=== PATIENT | male | born 1980 | race Caucasian/White ===

== ENCOUNTER 2017-03-10 16:22 | Emergency (ER) | payer SELFPAY ==
[~2017-03-10] VITALS: Ht 193 cm; Wt 99.8 kg
[~2017-03-10 16:22] MED LIST: AGM875T PO; ALBU8.5H2 IH; AMOX500C2 PO; AMOX500T2 PO; AZIT-21 PO; CEPH500C PO; CYCL10TA45 PO; CYCL10TA9 PO; HYDR-1231 PO; HYDR-3583 PO; HYDR1TAB3 PO; HYDR1TAB71 PO; IBP800T PO; NAPR-243 PO; NAPR500T PO; NAPR500T3 PO; NFIPRATRNS NS; ORPH100T PO; POLY119P PO; PRD20T PO; PRED5TAB PO; PROP1TAB77 PO; TRAM50TA2 PO; TRM50T PO; flexeril PO
--- NOTE | 2017-03-10 17:14 | ED EENT ---
History of Present Illness General Chief Complaint: Trauma-Non Activation Stated Complaint: FACE HIT BY SOFTBALL Nursing Triage Note: AMB TO ROOM WAS HIT IN NOSE WITH SOFTBALL SUPERFICAL LAC OVER BRIDGE OF NOSE. Source: patient Exam Limitations: no limitations History of Present Illness Time seen by provider: 17:12 Initial Comments To ER with reports of being struck in the bridge of his nose by one of his daughter's friends baseball pitches. He was wearing sunglasses at the time which lacerated the bridge of his nose. No loss of consciousness. No vision changes. Severity: moderate Location: nose Associated Symptoms: No cough, No fever Allergies and Home Medications Allergies Coded Allergies: NKANo Known Allergies (Unverified Allergy, Mild, 12/09/15) No Known Drug Allergies (Unverified , 12/22/09) Home Medications Cyclobenzaprine HCl 10 Mg Tablet, 10 MG PO Q8H, #15 Prescribed by: KATIE MCCAIN on 08/21/163 Naproxen 500 Mg Tablet, 500 MG PO BID, #20 Prescribed by: KATIE MCCAIN on 08/21/163 Review of Systems Constitutional: see HPI Eyes: No Symptoms Reported Ears: No Symptoms Reported Nose: see HPI Mouth: no symptoms reported Throat: no symptoms reported Respiratory: no symptoms reported Cardiovascular: no symptoms reported Musculoskeletal: no symptoms reported Past Arlvjch-Hzklil-Cnrdgz Hx Patient Social History Alcohol Use: Occasionally Uses Recreational Drug Use: No Smoking Status: Current Everyday Smoker Type Used: Cigarettes Recent Foreign Travel: No Contact w/Someone Who Travel: No Recent Infectious Disease Expo: No Recent Hopitalizations: No Immunizations Up To Date Tetanus Booster (TDap): Unknown Date of Influenza Vaccine: Sep 18, 2015 Seasonal Allergies Seasonal Allergies: No Surgeries HX Surgeries: Yes (RIGHT ARM REPAIR--CUT ARM ON CHICKEN WIRE/GLASS) Surgeries: Orthopedic Respiratory Hx Respiratory Disorders: Yes Respiratory Disorders: Asthma Cardiovascular Hx Cardiac Disorders: No Neurological Hx Neurological Disorders: Yes (h/o seizures-- stress induced petite mal seizures)) Neurological Disorders: Seizure Disorder Reproductive System Hx Reproductive Disorders: No Sexually Transmitted Disease: No HIV/AIDS: No Genitourinary Hx Genitourinary Disorders: No Gastrointestinal Hx Gastrointestinal Disorders: No Musculoskeletal Hx Musculoskeletal Disorders: Yes Musculoskeletal Disorders: Degenerate Disk Disease, Chronic Back Pain Endocrine Hx Endocrine Disorders: No HEENT HX ENT Disorders: No Cancer Hx Cancer: No Psychosocial Hx Psychiatric Problems: No Integumentary HX Skin/Integumentary Disorder: No Blood Transfusions Hx Blood Disorders: No Adverse Reaction to a Blood Tr: No Family Medical History Significant Family History: No Pertinent Family Hx Physical Exam Vital Signs Vital Sign - Last 12Hours 03/10/17 16:54 Temp 98.0 Pulse 96 Resp 18 B/P (MAP) 140/92 Pulse Ox 96 O2 Delivery Room Air General Appearance: WD/WN, no apparent distress Eyes: bilateral eye EOMI, bilateral eye PERRL, bilateral eye normal inspection Ears: bilateral ear TM normal, bilateral ear auricle normal, bilateral ear canal normal Nose: other (superficial laceration to the bridge of his nose without obvious deformity of the nose with no active bleeding. No septal hematoma.) Respiratory: no respiratory distress, no accessory muscle use Gastrointestinal: non tender, soft Neurologic/Psychiatric: alert, normal mood/affect, oriented x 3 Skin: normal color, warm/dry Progress/Results/Core Measures Results/Orders My Orders Orders - CELESTE BOWLES APRN Nasal Bones 3 Views (03/10/17 17:11) Vital Signs/I&O Vital Sign - Last 12Hours 03/10/17 16:54 Temp 98.0 Pulse 96 Resp 18 B/P (MAP) 140/92 Pulse Ox 96 O2 Delivery Room Air Blood Pressure Mean: 108 Diagnostic Imaging Diagonstic Imaging: Xray Comments NAME: ESTRADA DUARTE [facility] REC#: [id number] PT STATUS: REG ER : 1980 PHYSICIAN: CELESTE BOWLES APRN ADMIT DATE: 03/10/17/ER Draft Date of Exam:03/10/17 NASAL BONES 3 VIEWS EXAMINATION: Nasal bone radiographs, 3 views. COMPARISON: None. HISTORY: 36-year-old male, injury to nose. FINDINGS: There are comminuted nasal bone fractures without marked displacement identified radiographically. There is adjacent soft tissue swelling. There is no identified radiopaque foreign body. IMPRESSION: 1. Comminuted nasal bone fractures without gross fracture displacement noted radiographically. 2. No radiopaque foreign body. Dictated on workstation # [id number] Dict: 03/10/171802 Trans: 03/10/171806 [facility] [id number] Interpreted by: SHORTY ESTRADA MD Electronically signed by: Departure Impression Impression: Primary Impression: fracture of nasal bones Disposition: 01 HOME, SELF-CARE Condition: Stable Departure-Patient Inst. Decision time for Depature: 17:14 Referrals: ALEJO CARTER MD [facility][1] (PCP/Family) Primary Care Physician Patient Instructions: Contusion (DC), Nose Fracture (DC) Add. Discharge Instructions: 1. Antibiotics as directed 2. Pain medication as needed 3. Cold compresses to the face over the bridge of the nose 4. Follow-up with Dr. Carter in 1-2 weeks All discharge instructions reviewed with patient and/or family. Voiced understanding. Scripts Amoxicillin (Amoxicillin) 500 Mg Capsule 500 MG PO TID, #21 CAP Prov: CELESTE BOWLES APRN 03/10/17 Hydrocodone/Acetaminophen (Natchez 5-325 Tablet) 1 Each Tablet 1 EACH PO Q4H Y for PAIN-SEVERE, #10 TAB Prov: CELESTE BOWLES APRN 03/10/17 CELESTE BOWLES APRN Mar 10, 2017 17:14
--- NOTE | 2017-03-10 18:07 | Diagnostic Imaging Report ---
EXAMINATION: Nasal bone radiographs, 3 views. COMPARISON: None. HISTORY: 36-year-old male, injury to nose. FINDINGS: There are comminuted nasal bone fractures without marked displacement identified radiographically. There is adjacent soft tissue swelling. There is no identified radiopaque foreign body. IMPRESSION: 1. Comminuted nasal bone fractures without gross fracture displacement noted radiographically. 2. No radiopaque foreign body. Dictated by: Dictated on workstation # [id number]
[2017-03-10] MEDS ORDERED: HYDR-757 PO (18:11)
[2017-03-10] MEDS ORDERED: AMOX500C2 PO (18:11)
[2017-03-10 18:18] VITALS: BP 140/92
== END 2017-03-10 18:18 | disposition home or self-care (01) ==
LOC: EDUNIT# 16:22 → ER 16:24
DX: S01.21XA Laceration without foreign body of nose, initial encounter (principal); S02.2XXA Fracture of nasal bones, initial encounter for closed fracture; F17.210 Nicotine dependence, cigarettes, uncomplicated; W21.07XA Struck by softball, initial encounter; Y92.320 Baseball field as the place of occurrence of the external cause; Y93.64 Activity, baseball; Y99.8 Other external cause status
CPT/HCPCS: 70160; 99282

== ENCOUNTER → 2017-06-18 | Outpatient (CLI) | payer OTHER ==
[~2017-06-18] MED LIST changes: +HYDR-757 PO
--- NOTE | 2017-06-18 11:22 | Diagnostic Imaging Report ---
PROCEDURE: MRI lumbar spine. TECHNIQUE: Multiplanar, multisequence MRI of the lumbar spine was performed without contrast. INDICATION: Lumbar pain and radiculopathy. COMPARISON: CT lumbar spine without contrast 09/24/2014. MRI lumbar spine without contrast 06/18/2017. FINDINGS: There are 5 lumbar type vertebral bodies. There is grade 1 anterolisthesis of L5 on S1. Bilateral pars defects of L5. Alignment is otherwise normal. Vertebral body heights are maintained. Normal bone marrow signal. No abnormal signal of the conus which terminates at L1. Normal morphology of the cauda equina. The visualized paravertebral soft tissues are unremarkable. There is mild disc desiccation at L3-L4 and L5-S1. There is no spinal canal or lateral recess narrowing in the lumbar spine. At L5-S1, the anterolisthesis and unroofing of the intervertebral disc results in moderate right neural foraminal narrowing. There is no other substantial neural foraminal narrowing in the lumbar spine. IMPRESSION: No significant change. Grade 1 anterolisthesis of L5 on S1 due to bilateral pars defects of L5. This contributes to moderate right neural foraminal narrowing at L5-S1. There is no other substantial spinal canal, lateral recess or neural foraminal narrowing throughout the lumbar spine. Dictated by: Dictated on workstation # [id number]
== END ==
LOC: RAD 09:37
DX: M43.16 Spondylolisthesis, lumbar region (principal); M48.06 Spinal stenosis, lumbar region
CPT/HCPCS: 72148

== ENCOUNTER 2017-08-19 17:37 | Emergency (ER) | payer SELFPAY ==
[~2017-08-19] VITALS: Ht 193 cm; Wt 100.0 kg
--- OUTSIDE RECORDS SUMMARY | 2017-08-19 18:18 | XMS REPORT ---
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 01726167 ALLERGIES Unknown Allergies SOCIAL HISTORY No smoking Hx information available PLAN OF CARE Activity Details Follow Up prn Reason:Endo #19 VITAL SIGNS Blood pressure systolic 134 mmHg 2016-09-27 Blood pressure diastolic 93 mmHg 2016-09-27 MEDICATIONS Medication Instructions Dosage Frequency Start Date End Date Duration Status Rogers 5-325 MG Orally every 6 hrs 1 tablet as needed 6h 4 days Active Amoxicillin 500 MG Orally Three times a day 1 capsule 8h 7 days Active RESULTS No Results PROCEDURES Procedure Date Ordered Related Diagnosis Body Site Dental no charge Sep 27, 2016 IMMUNIZATIONS No Known Immunizations
--- OUTSIDE RECORDS SUMMARY | 2017-08-19 18:18 | XMS REPORT ---
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 Unknown Non Drug Allergy Oct, Unknown SOCIAL HISTORY No smoking Hx information available PLAN OF CARE Activity Details Follow Up prn Reason: VITAL SIGNS Height 74 in 2016-10-31 Weight 223 lbs 2016-10-31 Temperature 97.6 degrees Fahrenheit 2016-10-31 Heart Rate 80 bpm 2016-10-31 Respiratory Rate 20 2016-10-31 BMI 28.63 kg/m2 2016-10-31 Blood pressure systolic 122 mmHg 2016-10-31 Blood pressure diastolic 80 mmHg 2016-10-31 MEDICATIONS Unknown Medications RESULTS Name Result Date Reference Range Xray : Hand, Right 2 views (IN HOUSE) 2016-10-31 Xray : Wrist, Right 3 views (IN HOUSE) 2016-10-31 PROCEDURES Procedure Date Ordered Related Diagnosis Body Site X-RAY EXAM OF WRIST Oct 31, 2016 X-RAY EXAM OF HAND Oct 31, 2016 Office Visit, Est Pt., Level 3 Oct 31, 2016 IMMUNIZATIONS No Known Immunizations
--- OUTSIDE RECORDS SUMMARY | 2017-08-19 18:19 | XMS REPORT | Continuity of Care Document ---
Author Author [facility] Address Unknown Phone Unavailable Allergies Active Description Code Type Severity Reaction Onset Reported/Identified Relationship to Patient Clinical Status Yes No Known Drug Allergies [id number] Drug Allergy Mild N/A 12/22/2009 Yes NKANo Known Allergies NKA Miscellaneous Allergy Mild N/A 12/09/2015 Medications Problems Date Dx Coded Attending Type Code Diagnosis Diagnosed By 07/04/2010 Ot 305.90 07/04/2010 Ot 922.2 07/04/2010 Ot 924.01 07/04/2010 Ot 959.6 07/04/2010 Ot E000.8 07/04/2010 Ot E826.1 07/04/2010 Ot E849.5 07/09/2010 Ot 922.2 07/09/2010 Ot 959.12 07/09/2010 Ot E000.8 07/09/2010 Ot E849.5 07/09/2010 Ot E927.8 12/21/2010 Ot 382.4 SUPPUR OTITIS MEDIA NOS 12/21/2010 Ot 382.9 OTITIS MEDIA NOS 12/21/2010 Ot 473.9 CHRONIC SINUSITIS NOS 03/17/2012 Ot 564.00 UNSPEC CONSTIPATION 03/17/2012 Ot 789.00 ABDOMINAL PAIN, UNSPECIFIED SITE 05/27/2012 Ot 724.2 LUMBAGO 05/31/2012 Ot 780.39 OTHER CONVULSIONS 07/26/2012 Ot 462 ACUTE PHARYNGITIS 08/06/2012 078.11 WARTS CONDYLOMA GENITAL 08/06/2012 XOCHITL ADAMSON APRN 078.11 WARTS CONDYLOMA GENITAL 08/06/2012 BEBO BONILLA APRN 078.11 WARTS CONDYLOMA GENITAL 08/06/2012 MAI OSBORNE DO 078.11 WARTS CONDYLOMA GENITAL 08/06/2012 BEBO BONILLA APRN 078.11 WARTS CONDYLOMA GENITAL 08/06/2012 MADL SYSTEMS TESTING LABORATORY TECHNICIAN, BEBO L 078.11 WARTS CONDYLOMA GENITAL 06/02/2013 SONIA DILL MD Ot 521.00 UNSPEC DENTAL CARIES 06/02/2013 SONIA DILL MD Ot 723.1 CERVICALGIA 06/02/2013 SONIA DILL MD Ot 782.1 NONSPECIF SKIN ERUPT NEC 07/28/2013 521.00 UNSPECIFIED DENTAL CARIES 07/28/2013 JUAN DIEGO TIRADON, XOCHITL R 521.00 UNSPECIFIED DENTAL CARIES 07/28/2013 MADL SYSTEMS TESTING LABORATORY TECHNICIAN, BEBO L 521.00 UNSPECIFIED DENTAL CARIES 07/28/2013 MAI OSBORNE DO K 521.00 UNSPECIFIED DENTAL CARIES 07/28/2013 MADL SYSTEMS TESTING LABORATORY TECHNICIAN, BEBO L 521.00 UNSPECIFIED DENTAL CARIES 07/28/2013 MADL SYSTEMS TESTING LABORATORY TECHNICIAN, BEBO L 521.00 UNSPECIFIED DENTAL CARIES 09/11/2013 CELESTE BOWLES APRN Ot 521.00 UNSPEC DENTAL CARIES 09/11/2013 CELESTE BOWLES APRN Ot 522.5 PERIAPICAL ABSCESS 09/11/2013 CELESTE BOWLES SYSTEMS TESTING LABORATORY TECHNICIAN Ot 525.9 DENTAL DISORDER NOS 10/19/2013 SONIA DILL MD Ot 719.41 JOINT PAIN-SHLDER 10/19/2013 SONIA DILL MD Ot 726.10 BURSAE TENDONS DIS SHLDER NOS 01/02/2014 INGRID MANUEL Ot 564.00 UNSPEC CONSTIPATION 01/02/2014 INGRID MANUEL Ot 786.50 CHEST PAIN NOS 01/02/2014 INGRID MANUEL Ot 789.05 ABDOMINAL PAIN, PERIUMBILIC 05/11/2014 JUAN DIEGO FLANAGAN, XOCHITL R 724.2 LUMBAGO 05/11/2014 MADL SYSTEMS TESTING LABORATORY TECHNICIAN, BEBO L 724.2 LUMBAGO 05/11/2014 OSBORNE DOPHYLICIAA K 724.2 LUMBAGO 05/11/2014 MADL SYSTEMS TESTING LABORATORY TECHNICIAN, BEBO L 724.2 LUMBAGO 05/11/2014 MADL SYSTEMS TESTING LABORATORY TECHNICIAN, BEBO L 724.2 LUMBAGO 05/31/2014 MADL SYSTEMS TESTING LABORATORY TECHNICIAN, BEBO L 300.00 ANXIETY STATE UNSPECIFIED 05/31/2014 MADL SYSTEMS TESTING LABORATORY TECHNICIAN, BEBO L 729.1 MYALGIA AND MYOSITIS UNSPECIFIED 05/31/2014 MADL SYSTEMS TESTING LABORATORY TECHNICIAN, BEBO L 780.79 OTHER MALAISE AND FATIGUE 05/31/2014 OSBORNE DO, MAI K 300.00 ANXIETY STATE UNSPECIFIED 05/31/2014 OSBORNE DO, MAI K 729.1 MYALGIA AND MYOSITIS UNSPECIFIED 05/31/2014 OSBORNE DO MAI K 780.79 OTHER MALAISE AND FATIGUE 05/31/2014 MADL SYSTEMS TESTING LABORATORY TECHNICIAN, BEBO L 300.00 ANXIETY STATE UNSPECIFIED 05/31/2014 MADL SYSTEMS TESTING LABORATORY TECHNICIAN, BEBO L 729.1 MYALGIA AND MYOSITIS UNSPECIFIED 05/31/2014 MADL SYSTEMS TESTING LABORATORY TECHNICIAN, EBBO L 780.79 OTHER MALAISE AND FATIGUE 05/31/2014 MADL SYSTEMS TESTING LABORATORY TECHNICIAN, BEBO L 300.00 ANXIETY STATE UNSPECIFIED 05/31/2014 MADL SYSTEMS TESTING LABORATORY TECHNICIAN, BEBO L 729.1 MYALGIA AND MYOSITIS UNSPECIFIED 05/31/2014 MADL SYSTEMS TESTING LABORATORY TECHNICIAN, BEBO L 780.79 OTHER MALAISE AND FATIGUE 06/07/2014 OSBORNE DO MAI K 268.9 UNSPECIFIED VITAMIN D DEFICIENCY 06/07/2014 OSBORNE DO, MAI K 461.9 SINUSITIS ACUTE 06/07/2014 [place] FAIRBANKS, MAI K 790.21 ABNORMAL GLUOSE, FASTING 06/07/2014 MADL SYSTEMS TESTING LABORATORY TECHNICIAN, BEBO L 268.9 UNSPECIFIED VITAMIN D DEFICIENCY 06/07/2014 MADL SYSTEMS TESTING LABORATORY TECHNICIAN, BEBO L 461.9 SINUSITIS ACUTE 06/07/2014 MADL SYSTEMS TESTING LABORATORY TECHNICIAN, BEBO L 790.21 ABNORMAL GLUOSE, FASTING 06/07/2014 MADL SYSTEMS TESTING LABORATORY TECHNICIAN, BEBO L 268.9 UNSPECIFIED VITAMIN D DEFICIENCY 06/07/2014 MADL SYSTEMS TESTING LABORATORY TECHNICIAN, BEBO L 461.9 SINUSITIS ACUTE 06/07/2014 MADL SYSTEMS TESTING LABORATORY TECHNICIAN, BEBO L 790.21 ABNORMAL GLUOSE, FASTING 07/15/2014 MADL SYSTEMS TESTING LABORATORY TECHNICIAN, BEBO L 724.3 SCIATICA 07/15/2014 MADL SYSTEMS TESTING LABORATORY TECHNICIAN, BEBO L 724.3 SCIATICA 09/18/2014 CELESTE BOWLES SYSTEMS TESTING LABORATORY TECHNICIAN Ot 924.20 CONTUSION OF FOOT 09/18/2014 CELESTE BOWLES SYSTEMS TESTING LABORATORY TECHNICIAN Ot 959.7 LOWER LEG INJURY NOS 09/18/2014 CELESTE BOWLES SYSTEMS TESTING LABORATORY TECHNICIAN Ot E000.8 OTHER EXTERNAL CAUSE STATUS 09/18/2014 CELESTE BOWLES SYSTEMS TESTING LABORATORY TECHNICIAN Ot E917.0 STRUCK IN SPORTS 09/24/2014 INGRID MANUEL Ot 722.10 LUMBAR DISC DISPLACEMENT 09/24/2014 INGRID MANUEL Ot 724.2 LUMBAGO 09/24/2014 INGRID MANUEL Ot 756.11 LUMBOSACR SPONDYLOLYSIS 09/24/2014 INGRID MANUEL Ot 847.9 SPRAIN OF BACK NOS 09/24/2014 INGRID MANUEL Ot E928.9 ACCIDENT NOS 10/06/2014 BEBO BONILLA APRN L 738.4 ACQUIRED SPONDYLOLISTHESIS 01/13/2015 Ot 461.9 ACUTE SINUSITIS NOS 01/13/2015 Ot 462 ACUTE PHARYNGITIS 01/13/2015 Ot 466.0 ACUTE BRONCHITIS 01/14/2015 INGRID MANUEL Ot 722.10 01/14/2015 INGRID MANUEL Ot 738.4 02/04/2015 Ot 780.39 OTHER CONVULSIONS 02/20/2015 CELESTE BOWLES SYSTEMS TESTING LABORATORY TECHNICIAN Ot 465.9 ACUTE URI NOS 02/20/2015 CELESTE BOWLES SYSTEMS TESTING LABORATORY TECHNICIAN Ot 786.2 COUGH 05/15/2015 RAÚL ROGERS MD Ot 789.09 ABDOMINAL PAIN, OTHER SPECIFIED SITE 05/15/2015 RAÚL ROGERS MD Ot 848.8 SPRAIN NEC 05/15/2015 RAÚL ROGERS MD Ot E000.8 OTHER EXTERNAL CAUSE STATUS 05/15/2015 RAÚL ROGERS MD Ot E927.0 OVEREXERTION FROM SUDDEN STRENUOUS MOVEM 05/19/2015 INGRID MANUEL Ot 722.10 05/19/2015 INGRID MANUEL Ot 738.4 10/16/2015 INGRID MANUEL Ot 722.10 10/16/2015 INGRID MANUEL Ot 738.4 10/16/2015 INGRID MANUEL Ot F17.210 NICOTINE DEPENDENCE, CIGARETTES, UNCOMPL 10/16/2015 INGRID MANUEL Ot G89.29 OTHER CHRONIC PAIN 10/16/2015 INGRID MANUEL Ot M54.16 RADICULOPATHY, LUMBAR REGION 10/16/2015 INGRID MANUEL Ot 722.10 10/16/2015 INGRID MANUEL Ot 738.4 12/09/2015 INGRID MANUEL Ot F17.210 NICOTINE DEPENDENCE, CIGARETTES, UNCOMPL 12/09/2015 INGRID MANUEL Ot S20.212A CONTUSION OF LEFT FRONT WALL OF THORAX, 12/09/2015 INGRID MANUEL Ot S46.912A STRAIN UNSP MUSC/FASC/TEND AT SHLDR/ UP A 12/09/2015 INGRID MANUEL Ot W22.8XXA STRIKING AGAINST OR STRUCK BY OTHER OBJE 12/09/2015 INGRID MANUEL Ot Y99.8 OTHER EXTERNAL CAUSE STATUS 04/16/2016 INGRID MANUEL Ot 722.10 LUMBAR DISC DISPLACEMENT 04/16/2016 INGRID MANUEL Ot 738.4 ACQ SPONDYLOLISTHESIS 04/16/2016 INGRID MANUEL Ot 722.10 LUMBAR DISC DISPLACEMENT 04/16/2016 INGRID MANUEL Ot 738.4 ACQ SPONDYLOLISTHESIS 04/16/2016 INGRID MANUEL Ot 722.10 LUMBAR DISC DISPLACEMENT 04/16/2016 INGRID MANUEL Ot 738.4 ACQ SPONDYLOLISTHESIS 06/03/2016 CELESTE BOWLES SYSTEMS TESTING LABORATORY TECHNICIAN Ot F17.210 NICOTINE DEPENDENCE, CIGARETTES, UNCOMPL 06/03/2016 CELESTE BOWLES APRN Ot M43.6 TORTICOLLIS 06/03/2016 CELESTE BOWLES APRN Ot M54.9 DORSALGIA, UNSPECIFIED 06/05/2016 CELESTE BOWLES SYSTEMS TESTING LABORATORY TECHNICIAN Ot F17.210 NICOTINE DEPENDENCE, CIGARETTES, UNCOMPL 06/05/2016 CELESTE BOWLES APRN Ot M43.6 TORTICOLLIS 06/05/2016 CELESTE BOWLES APRN Ot M54.9 DORSALGIA, UNSPECIFIED 06/08/2016 CELESTE BOWLES SYSTEMS TESTING LABORATORY TECHNICIAN Ot F17.210 NICOTINE DEPENDENCE, CIGARETTES, UNCOMPL 06/08/2016 CELESTE BOWLES SYSTEMS TESTING LABORATORY TECHNICIAN Ot M43.6 TORTICOLLIS 06/08/2016 CELESTE BOWLES SYSTEMS TESTING LABORATORY TECHNICIAN Ot M54.9 DORSALGIA, UNSPECIFIED 07/20/2016 INGRID MANUEL Ot 722.10 LUMBAR DISC DISPLACEMENT 07/20/2016 INGRID MANUEL Ot 738.4 ACQ SPONDYLOLISTHESIS 07/24/2016 ELIANE GRIFFITH DO Ot F17.210 NICOTINE DEPENDENCE, CIGARETTES, UNCOMPL 07/24/2016 ELIANE GRIFFITH DO Ot M54.12 RADICULOPATHY, CERVICAL REGION 07/24/2016 ELIANE GRIFFITH DO Ot R20.0 ANESTHESIA OF SKIN 08/02/2016 MADL, BEBO L EQUIPMENT HIRE MANAGER Ot R20.2 PARESTHESIA OF SKIN 08/02/2016 MADL, BEBO L EQUIPMENT HIRE MANAGER Ot R20.2 PARESTHESIA OF SKIN 08/21/2016 KALYN KATIE K Ot F17.210 NICOTINE DEPENDENCE, CIGARETTES, UNCOMPL 08/21/2016 KALYN , KATIE K Ot R07.81 PLEURODYNIA 08/21/2016 KALYN , KATIE K Ot S20.212A CONTUSION OF LEFT FRONT WALL OF THORAX, 08/21/2016 KALYN KATIE FAIRBANKS K Ot W50.0XXA ACCIDENTAL HIT OR STRIKE BY ANOTHER PERS 08/21/2016 KALYN , KATIE K Ot Y93.89 ACTIVITY, OTHER SPECIFIED 08/21/2016 KALYN , KATIE K Ot Y99.8 OTHER EXTERNAL CAUSE STATUS 08/22/2016 KALYN MICHAEL FAIRBANKSA Fernanda Ot F17.210 NICOTINE DEPENDENCE, CIGARETTES, UNCOMPL 08/22/2016 KALYN , KATIE K Ot R07.81 PLEURODYNIA 08/22/2016 KALYN , KATIE K Ot S20.212A CONTUSION OF LEFT FRONT WALL OF THORAX, 08/22/2016 KALYN MICHAEL FAIRBANKSA Fernanda Ot W50.0XXA ACCIDENTAL HIT OR STRIKE BY ANOTHER PERS 08/22/2016 KALYN , KATIE K Ot Y93.89 ACTIVITY, OTHER SPECIFIED 08/22/2016 AKLYN , KATIE K Ot Y99.8 OTHER EXTERNAL CAUSE STATUS 03/10/2017 CELESTE BOWLES APRN Ot F17.210 NICOTINE DEPENDENCE, CIGARETTES, UNCOMPL 03/10/2017 CELESTE BOWLES APRN Ot S01.21XA LACERATION WITHOUT FOREIGN BODY OF NOSE , 03/10/2017 CELESTE BOWLES APRN Ot S02.2XXA FRACTURE OF NASAL BONES, INIT ENCNTR FOR 03/10/2017 CELESTE BOWLES APRN Ot W21.07XA STRUCK BY SOFTBALL, INITIAL ENCOUNTER 03/10/2017 CELESTE BOWLES APRN Ot Y92.[address] 03/10/2017 CELESTE BOWLES APRN Ot Y93.64 ACTIVITY, BASEBALL 03/10/2017 CELESTE BOWLES APRN Ot Y99.8 OTHER EXTERNAL CAUSE STATUS 03/12/2017 CELESTE BOWLES APRN Ot F17.210 NICOTINE DEPENDENCE, CIGARETTES, UNCOMPL 03/12/2017 CELESTE BOWLES APRN Ot S01.21XA LACERATION WITHOUT FOREIGN BODY OF NOSE , 03/12/2017 CELESTE BOWLES APRN Ot S02.2XXA FRACTURE OF NASAL BONES, INIT ENCNTR FOR 03/12/2017 CELESTE BOWLES APRN Ot W21.07XA STRUCK BY SOFTBALL, INITIAL ENCOUNTER 03/12/2017 CELESTE BOWLES APRN Ot Y92.[address] 03/12/2017 CELESTE BOWLES APRN Ot Y93.64 ACTIVITY, BASEBALL 03/12/2017 CELESTE BOWLES APRN Ot Y99.8 OTHER EXTERNAL CAUSE STATUS 04/20/2017 CELESTE BOWLES APRN Ot F17.210 NICOTINE DEPENDENCE, CIGARETTES, UNCOMPL 04/20/2017 CELESTE BOWLES APRN Ot S01.21XA LACERATION WITHOUT FOREIGN BODY OF NOSE , 04/20/2017 CELESTE BOWLES APRN Ot S02.2XXA FRACTURE OF NASAL BONES, INIT ENCNTR FOR 04/20/2017 CELESTE BOWLES APRN Ot W21.07XA STRUCK BY SOFTBALL, INITIAL ENCOUNTER 04/20/2017 CELESTE BOWLES APRN Ot Y92.[address] 04/20/2017 CELESTE BOWLES APRN Ot Y93.64 ACTIVITY, BASEBALL 04/20/2017 CELESTE BOWLES APRN Ot Y99.8 OTHER EXTERNAL CAUSE STATUS 06/19/2017 PRITCHARD, LYLE L SYSTEMS TESTING LABORATORY TECHNICIAN Ot M43.16 SPONDYLOLISTHESIS, LUMBAR REGION 06/19/2017 [place]CHAR[place] SYSTEMS TESTING LABORATORY TECHNICIAN Ot M48.06 SPINAL STENOSIS, LUMBAR REGION Procedures Code Description [place] [address] ROUTINE VENIPUNCTURE 05/31/2014 94506 CMP 05/31/2014 10474 LIPID PANEL 05/31 55127 VITAMIN D 25-HYDROXY (D2,D3, TOTAL) 05/31/2014 57883 TSH 05/31/2014 39460 CBC 05/31/2014 87407 ROUTINE VENIPUNCTURE 06/07/2014 36568 ROUTINE VENIPUNCTURE 06/07/2014 08995 GLUCOSE RICCI 2 HOUR 06/07/2014 Results Encounters ACCT No. Visit Date/Time Discharge Status Pt. Type Provider Facility Loc./Unit Complaint [id number] 10/06/2014 08:17:00 10/06/2014 23: 59:59 CLS Outpatient BEBO BONILLA APRN [id number] 07/15/2014 09:23:00 07/15/2014 23: 59:59 CLS Outpatient BEBO BONILLA APRN [id number] 06/07/2014 14:31:00 06/07/2014 23: 59:59 CLS Outpatient MAI OSBORNE DO [id number] 05/31/2014 09:52:00 05/31/2014 23: 59:59 CLS Outpatient BEBO BONILLA APRN [id number] 05/11/2014 17:53:00 05/11/2014 23: 59:59 CLS Outpatient XOCHITL ADAMSON APRN [id number] 07/28/2013 11:15:00 Document Registration [id number] 06/18/2017 09:37:00 2016 23:59:59 CLS Outpatient MACHO LYLE Lina SYSTEMS TESTING LABORATORY TECHNICIAN [facility] RAD SEVERE LUMBAR PAIN [id number] 03/10/2017 16:24:00 2016 18:18:00 DIS Emergency CELESTE BOWLES APRN [facility] ER FACE HIT BY SOFTBALL [id number] 08/21/2016 21:32:00 2015 22:40:00 DIS Emergency KATIE MCCAIN DO [facility] ER RIB PAIN/INJ [id number] 08/01/2016 09:12:00 2015 23:59:59 CLS Outpatient BEBO BONILLA EQUIPMENT HIRE MANAGER [facility] RAD PARESTHESIA OF RT ARM [id number] 07/20/2016 21:21:00 2015 22:04:00 DIS Outpatient NACHO FAIRBANKS ELIANE Tamiko [facility] ER LEFT HAND NUMB [id number] 06/03/2016 19:50:00 2015 22:02:00 DIS Emergency CELESTE BOWLES APRN [facility] ER LT SIDE UPPER BACK PAIN [id number] 12/09/2015 19:25:00 2015 22:36:00 DIS Emergency INGRID MANUEL [facility] ER L SIDE ARM PAIN [id number] 10/16/2015 13:52:00 2014 14:48:00 DIS Emergency INGRID MANUEL [facility] ER BACK PAIN [id number] 05/15/2015 10:19:00 2014 12:36:00 DIS Emergency RAÚL ROGERS MD [facility] ER GROIN PAIN [id number] 02/20/2015 20:37:00 2014 21:03:00 DIS Emergency CELESTE BOWLES APRN [facility] ER CHEST CONGESTION,SORE THROAT [id number] 09/29/2014 08:16:00 2013 23:59:59 CLS Outpatient INGRID MANUEL [facility] RAD HERNIATED DISC, [id number] 09/24/2014 15:26:00 2013 17:38:00 DIS Emergency INGRID MANUEL [facility] ER BACK PAIN, LEFT SHOULDER PAIN [id number] 09/18/2014 18:44:00 2013 19:24:00 DIS Emergency CELESTE BOWLES APRN [facility] ER R FOOT PAIN [id number] 01/02/2014 18:55:00 2013 22:32:00 DIS Emergency INGRID MANUEL [facility] ER CHEST PAINS [id number] 10/19/2013 08:00:00 2012 08:56:00 DIS Emergency SONIA DILL MD [facility] ER RIGHT SHOULDER PAIN [id number] 09/11/2013 20:21:00 2012 20:40:00 DIS Emergency CELESTE BOWLES APRN [facility] ER DENTAL PAIN [id number] 06/01/2013 22:39:00 2012 01:50:00 DIS Emergency SONIA DILL MD [facility] ER SKIN PROBLEMS/RASH [id number] 05/19/2015 14:47:00 Document Registration [id number] 01/12/2015 23:44:00 Document Registration [id number] 07/26/2012 06:28:00 Document Registration [id number] 05/30/2012 22:44:00 Document Registration [id number] 05/27/2012 13:49:00 Document Registration [id number] 03/17/2012 14:34:00 Document Registration [id number] 12/21/2010 00:38:00 Document Registration [id number] 07/09/2010 18:08:00 Document Registration [id number] 07/04/2010 19:21:00 Document Registration
[2017-08-19] MEDS ORDERED: TRAM-42 PO (19:13)
--- NOTE | 2017-08-19 19:13 | ED Chest Pain ---
General Chief Complaint: Chest Wall/Rib Pain Stated Complaint: L SIDE CHEST/RIB INJ Nursing Triage Note: PT STATES HE WAS PLAYING FOOTBALL AND SOMEONE FELL ON HIM, CC OF LT RIB/CHEST PAIN. HAPPENED ABOUT 1705 TODAY. Nursing Sepsis Screen: No Definite Risk Source: patient Exam Limitations: no limitations History of Present Illness Time seen by provider: 19:08 Initial Comments To ER with reports of left upper lateral chest wall pain. This began about 5 p.m. this evening. 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 Timing/Duration: 1-3 hours Severity/Quality: moderate Radiation: no radiation Activities at Onset: none Allergies and Home Medications Allergies Coded Allergies: NKANo Known Allergies (Unverified Allergy, Mild, 12/09/15) No Known Drug Allergies (Unverified , 12/22/09) Home Medications Amoxicillin 500 Mg Capsule, 500 MG PO TID, #21 Prescribed by: CELESTE BOWLES on 03/10/17 1811 Cyclobenzaprine HCl 10 Mg Tablet, 10 MG PO Q8H, #15 Prescribed by: KATIE MCCAIN on 08/21/16 2233 Hydrocodone/Acetaminophen 1 Each Tablet, 1 EACH PO Q4H PRN for PAIN-SEVERE, #10 Prescribed by: CELESTE BOWLES on 03/10/17 1811 Naproxen 500 Mg Tablet, 500 MG PO BID, #20 Prescribed by: KATIE MCCAIN on 08/21/16 2233 Review of Systems Constitutional: see HPI EENTM: No Symptoms Reported Respiratory: Shortness of Air Cardiovascular: No Symptoms Reported Gastrointestinal: No Symptoms Reported Genitourinary: No Symptoms Reported Musculoskeletal: no symptoms reported Skin: no symptoms reported Psychiatric/Neurological: No Symptoms Reported Endocrine: No Symptoms Reported Past Kbrzufn-Crejcw-Tyxzle Hx Patient Social History Alcohol Use: Occasionally Uses Number of Drinks Today: AA Alcohol Beverage of Choice: Beer Recreational Drug Use: No Type Used: Cigarettes Recent Foreign Travel: No Contact w/Someone Who Travel: No Recent Infectious Disease Expo: No Recent Hopitalizations: No Immunizations Up To Date Tetanus Booster (TDap): Unknown Date of Influenza Vaccine: Sep 18, 2015 Seasonal Allergies Seasonal Allergies: No Surgeries History of Surgeries: Yes (RIGHT ARM REPAIR--CUT ARM ON CHICKEN WIRE/GLASS) Surgeries: Orthopedic Respiratory History of Respiratory Disorde: Yes Respiratory Disorders: Asthma Cardiovascular History of Cardiac Disorders: No Neurological History of Neurological Disord: Yes (h/o seizures-- stress induced petite mal seizures)) Neurological Disorders: Seizure Disorder Reproductive System Hx Reproductive Disorders: No Sexually Transmitted Disease: No HIV/AIDS: No Genitourinary History of Genitourinary Disor: No Gastrointestinal History of Gastrointestinal Di: No Musculoskeletal History of Musculoskeletal Dis: Yes Musculoskeletal Disorders: Degenerate Disk Disease, Chronic Back Pain Endocrine History of Endocrine Disorders: No Cancer History of Cancer: No Psychosocial History of Psychiatric Problem: No Integumentary History of Skin or Integumenta: No Blood Transfusions History of Blood Disorders: No Adverse Reaction to a Blood Tr: No Family Medical History Significant Family History: No Pertinent Family Hx Physical Exam Vital Signs Vital Sign - Last 12Hours 08/19/17 18:26 Temp 97.2 Pulse 79 Resp 20 B/P (MAP) 121/86 Pulse Ox 98 O2 Delivery Room Air Capillary Refill : Less Than 3 Seconds General Appearance: No Apparent Distress, WD/WN HEENT: PERRL/EOMI, TMs Normal Neck: Full Range of Motion, Normal Inspection Respiratory: No Accessory Muscle Use, No Respiratory Distress, Other (left chest wall is very tender to palpation but there is no ecchymosis, crepitus, deformity,) Cardiovascular: Regular Rate, Rhythm, Normal Peripheral Pulses Gastrointestinal: Non Tender, Soft Neurologic/Psychiatric: Alert, Oriented x3 Skin: Normal Color, Warm/Dry Progress/Results/Core Measures Results/Orders My Orders Orders - CELESTE BOWLES BLOW OFF WORKER Ribs/Unilateral With Chest (08/19/17 18:30) Vital Signs/I&O Vital Sign - Last 12Hours 08/19/17 18:26 Temp 97.2 Pulse 79 Resp 20 B/P (MAP) 121/86 Pulse Ox 98 O2 Delivery Room Air Blood Pressure Mean: 98 Departure Impression Impression: Primary Impression: Chest wall contusion Disposition: 01 HOME, SELF-CARE Condition: Stable Departure-Patient Inst. Decision time for Depature: 19:11 Referrals: NO,LOCAL PHYSICIAN (PCP/Family) Primary Care Physician Patient Instructions: CHEST CONTUSION, Chest Pain (DC) Add. Discharge Instructions: 1. Return to ER for any concerns 2. Follow-up with your doctor next week Scripts Tramadol HCl (Ultram) 50 Mg Tablet 50 MG PO Q6H Y for PAIN-MODERATE TO SEVERE, #10 TAB Prov: CELESTE BOWLES APRN 08/19/17 CELESTE BOWLES APRN Aug 19, 2017 19:13
[2017-08-19 19:21] VITALS: BP 136/78
--- NOTE | 2017-08-19 19:26 | Diagnostic Imaging Report ---
INDICATION: Trauma to chest, knee to the chest. Now with pain. TECHNIQUE: Single view chest along with three views left ribs at 06:58 p.m. CORRELATION STUDY: 08/21/2016. FINDINGS: The heart size, mediastinal configuration and pulmonary vascularity are within normal limits. The lungs are clear with no consolidating infiltrate. There is no significant effusion or pneumothorax. No acute displaced left rib fracture. IMPRESSION: 1. No radiographic evidence for acute abnormality of the chest. Negative for acute displaced left rib fracture. Dictated by: Dictated on workstation # [id number]
== END 2017-08-19 19:21 | disposition home or self-care (01) ==
LOC: EDUNIT# 17:37 → ER 17:39
DX: S20.212A Contusion of left front wall of thorax, initial encounter (principal); J45.909 Unspecified asthma, uncomplicated; G40.909 Epilepsy, unspecified, not intractable, without status epilepticus; W01.10XA Fall on same level from slipping, tripping and stumbling with subsequent striking against unspecified object, initial encounter; Y93.61 Activity, american tackle football
CPT/HCPCS: 71101; 99283

== ENCOUNTER 2017-11-09 15:40 | Emergency (ER) | payer SELFPAY ==
[~2017-11-09] VITALS: Ht 182.9 cm; Wt 95.3 kg
[~2017-11-09 15:40] MED LIST changes: +NAPR-1071 PO; -NAPR500T PO; -NAPR500T3 PO; +NAPR500T4 PO; +TRAM-42 PO
--- OUTSIDE RECORDS SUMMARY | 2017-11-09 15:47 | XMS REPORT ---
Author Author GERALD MILLER [facility] Address Unknown Care Team Providers Care Hand Button Splitter Name Role Phone GERALD MILLER Unavailable PROBLEMS Type Condition ICD9-CM Code [id number] Code Onset Dates Condition Status SNOMED Code Problem Foraminal stenosis of cervical region M99.81 Active [id number] ALLERGIES No Information SOCIAL HISTORY Never Assessed PLAN OF CARE VITAL SIGNS MEDICATIONS Medication Instructions Dosage Frequency Start Date End Date Duration Status [place] 5-325 MG Orally every 6 hrs 1 tablet as needed 6h Aug,Sep 10 days Active RESULTS No Results PROCEDURES No Known procedures IMMUNIZATIONS No Known Immunizations MEDICAL (GENERAL) HISTORY Type Description Date Medical History Unspecified dental caries Medical History Anxiety state, unspecified Medical History asthma Medical History back trouble Surgical History surgery on R. arm at age 19
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
--- NOTE | 2017-11-09 16:55 | ED Cough/URI ---
General Chief Complaint: Cough/Cold/Flu Symptoms Stated Complaint: COUGH,SOB,POSS SEIZURE Nursing Triage Note: c/o cough/congestion/fever/fatigue/nasal congestion. Possibly had a "seizure" last night. Pt thinks he has "stress or petit mal" seizures. Source: patient Exam Limitations: no limitations History of Present Illness Time seen by provider: 16:50 Initial Comments Patient presents to the ER by private conveyance with a chief complaint that for one day he's had body aches, malaise, fevers subjectively and shortness of breath and cough. He does smoke about a pack a day although he has reduced the last day to one cigarette per day. He's had no rash but he did have some nausea and vomiting started this morning. He's had no diarrhea. He has a history of asthma when he was a kid but has not use an albuterol inhaler for many years. He has no ear nose pain. He's had some nasal discharge that is clear. He says he had some amoxicillin left over from dental work that he took 2 tablets of in the last 24 hours but says it is not fixed this problem yet. Patient also states this morning that he got up off the toilet and began to have uncontrollable shaking. He says when he was a child he was told he had petted mall seizures anything suggestive this was a petit mal seizure. He denies loss of consciousness, incontinence, loss time or amnesia. He was not witnessed. He does not have a primary care physician and is not on any medicines for seizures. He says his last seizure was about 3 years ago. Allergies and Home Medications Allergies Coded Allergies: EMERALDANo Known Allergies (Unverified Allergy, Mild, 12/09/15) No Known Drug Allergies (Unverified , 12/22/09) Home Medications Amoxicillin 500 Mg Capsule, 500 MG PO TID, #21 Prescribed by: CELESTE BOWLES on 03/10/17 1811 Amoxicillin 500 Mg Capsule, 500 MG PO TID for 7 Days, #21 Ref 0 Prescribed by: CHRISTINA OLIVAREZ on 11/09/17 1701 Benzonatate 100 Mg Capsule, 100 MG PO Q6H, #20 Ref 0 Prescribed by: CHRISTINA OLIVAREZ on 11/09/17 1701 Cyclobenzaprine HCl 10 Mg Tablet, 10 MG PO Q8H, #15 Prescribed by: KATIE MCCAIN on 08/21/163 Hydrocodone/Acetaminophen 1 Each Tablet, 1 EACH PO Q4H PRN for PAIN-SEVERE, #10 Prescribed by: CELESTE BOWLES on 03/10/17 1811 Naproxen 500 Mg Tablet, 500 MG PO BID, #20 Prescribed by: KATIE MCCAIN on 08/21/163 Ondansetron 4 Mg Tab.rapdis, 4 MG PO Q6H PRN for NAUSEA/VOMITING, #8 Ref 0 Prescribed by: CHRISTINA OLIVAREZ on 11/09/17 1701 Tramadol HCl 50 Mg Tablet, 50 MG PO Q6H PRN for PAIN-MODERATE TO SEVERE, #10 Prescribed by: CELESTE BOWLES on 08/19/17 1913 Constitutional: chills, dizziness, fever, malaise EENTM: dental problems, No ear discharge, No hearing loss, No ear pain, No blurred vision Respiratory: cough, No phlegm, short of breath, No wheezing Cardiovascular: chest pain (on deep inspiration and when coughing), No syncope , No vascular heart diseas Gastrointestinal: No abdominal pain, No constipation, No diarrhea, nausea, vomiting (yellow colored) Genitourinary: No discharge, No dysuria Musculoskeletal: No back pain, No joint pain, No joint swelling Skin: No pruritus, No rash Psychiatric/Neurological: Headache, Denies Numbness, Denies Paresthesia, Seizure, Denies Tingling, Denies Tremors, Denies Weakness Past Waerxrr-Yxtkyh-Eivles Hx Patient Social History Alcohol Use: Occasionally Uses Number of Drinks Today: AA Alcohol Beverage of Choice: Beer Recreational Drug Use: No Smoking Status: Current Everyday Smoker Type Used: Cigarettes Recent Foreign Travel: No Contact w/Someone Who Travel: No Recent Infectious Disease Expo: No Recent Hopitalizations: No Immunizations Up To Date Tetanus Booster (TDap): Unknown Date of Influenza Vaccine: Sep 18, 2015 Seasonal Allergies Seasonal Allergies: No Surgeries History of Surgeries: Yes (RIGHT ARM REPAIR--CUT ARM ON CHICKEN WIRE/GLASS) Surgeries: Orthopedic Respiratory History of Respiratory Disorde: Yes Respiratory Disorders: Asthma Cardiovascular History of Cardiac Disorders: No Neurological History of Neurological Disord: Yes (h/o seizures-- stress induced petite mal seizures)) Neurological Disorders: Seizure Disorder Reproductive System Hx Reproductive Disorders: No Sexually Transmitted Disease: No HIV/AIDS: No Genitourinary History of Genitourinary Disor: No Gastrointestinal History of Gastrointestinal Di: No Musculoskeletal History of Musculoskeletal Dis: Yes Musculoskeletal Disorders: Degenerate Disk Disease, Chronic Back Pain Endocrine History of Endocrine Disorders: No Cancer History of Cancer: No Psychosocial History of Psychiatric Problem: No Integumentary History of Skin or Integumenta: No Blood Transfusions History of Blood Disorders: No Adverse Reaction to a Blood Tr: No Family Medical History Significant Family History: No Pertinent Family Hx Physical Exam Vital Signs Vital Sign - Last 12Hours 11/09/17 15:50 Temp 99.5 Pulse 70 Resp 18 B/P (MAP) 131/93 (106) Pulse Ox 98 O2 Delivery Room Air Capillary Refill : Less Than 3 Seconds General Appearance: WD/WN, mild distress Eyes: Bilateral Eye Normal Inspection, Bilateral Eye PERRL, Bilateral Eye EOMI HEENT: PERRL/EOMI, TM abnormal (R) (dull and retracted with serous effusion), TM abnormal (L) (dull and retracted with serous effusion) Neck: non-tender, full range of motion, normal inspection Respiratory: lungs clear, normal breath sounds, no respiratory distress, no accessory muscle use, other (tender to palpation over the manubrium) Cardiovascular: normal peripheral pulses, no edema Gastrointestinal: normal bowel sounds, non tender, soft Extremities: normal range of motion, non-tender, normal inspection, no pedal edema, no calf tenderness, normal capillary refill Neurologic/Psychiatric: no motor/sensory deficits, alert, normal mood/affect, oriented x 3 Skin: normal color, warm/dry Progress/Results/Core Measures Suspected Sepsis Recent Fever Within 48 Hours: No Infection Criteria Present: None New/Unexplained Altered Menta: No Sepsis Screen: No Definite Risk Sepsis Diagnosis: SIRS Temperature:99.5 Pulse: 70 Respiratory Rate: 18 Blood Pressure 131 /93 Mean: 106 Results/Orders Micro Results Microbiology 11/09/17 Influenza Types A,B Antigen (HENRI) - Final, Complete My Orders Orders - CHRISTINA OLIVAREZ Influenza A And B Antigens (11/09/17 16:49) Ketorolac Injection (Toradol Injection) (11/09/17 17:00) Medications Given in ED Current Medications Medications Dose Ordered Sig/Stuart Route Start Time Stop Time Status Last Admin Dose Admin Ketorolac Tromethamine 30 mg ONCE ONCE IM 11/09/17 17:00 11/09/17 17:01 DC 11/09/17 16:57 30 MG Vital Signs/I&O Vital Sign - Last 12Hours 11/09/17 11/09/17 15:50 16:57 Temp 99.5 99.5 Pulse 70 Resp 18 B/P (MAP) 131/93 (106) Pulse Ox 98 O2 Delivery Room Air Capillary Refill : Less Than 3 Seconds Blood Pressure Mean: 106 Progress Note : Progress Note We have discussed that he should not drive until he follows up and is cleared by either her primary care physician or neurologist. His headache, upper respirator symptoms and cough are consistent with a viral bronchitis or possibly influenza so we will swab him. We have given him expectations for improvement. He is not having any wheezing so steroids and beta adrenergics are probably not appropriate at this junction. He is having some dental tenderness and has extensive dental caries so amoxicillin may play a role after his viral illness as concluded so as not to cause worsening diarrhea or stomach upset. For his serous otitis media Flonase would be appropriate. Departure Impression Impression: Primary Impression: Acute otitis media with effusion of both ears Additional Impressions: Bronchitis Seizure-like activity Dental caries Upper respiratory tract infection Qualified Codes: J06.9 - Acute upper respiratory infection, unspecified; B97.89 - Other viral agents as the cause of diseases classified elsewhere Disposition: 01 HOME, SELF-CARE Condition: Stable Departure-Patient Inst. Decision time for Depature: 17:20 Referrals: NO,LOCAL PHYSICIAN (PCP/Family) Primary Care Physician Patient Instructions: Acute Bronchitis, Adult (DC) Add. Discharge Instructions: If you're having a cough you can take the cough medicine one capsule every 6 hours as needed. If you begin to have shortness of breath or wheezing you may roller picker the Ventolin inhaler and take 2 puffs every 4 hours as needed. If you' re having nausea you may take one tablet of Zofran and place under your tongue and allowed to dissolve every 6 hours. In 10-14 days when you're viral gastroenteritis and bronchitis have concluded if you want to start amoxicillin for 7 days to treat your dental pain that would be reasonable take one capsule twice a day at that time. Because her symptoms today are from a virus amoxicillin will not help and that potential side effects of amoxicillin causing diarrhea and upset stomach only make your symptoms worse. If you have a fever or body aches you should take 1000 mg of Tylenol every 6 hours and/or 800 mg of ibuprofen every 8 hours. For your headache and ear effusions you may roller picker a bottle of Flonase and use 1 spray in each nostril daily for 2 weeks. Typically you'll see some improvement in 2-4 days. Follow-up with a primary care physician in the next 2-4 weeks to establish care and workup your seizure activity and see if you might benefit from prophylactic medications. You should not drive until you've been cleared by a primary care physician or a neurologist. All discharge instructions reviewed with patient and/or family. Voiced understanding. Scripts Ondansetron (Ondansetron Odt) 4 Mg Tab.rapdis 4 MG PO Q6H Y for NAUSEA/VOMITING, #8 TAB 0 Refills Prov: CHRISTINA OLIVAREZ 11/09/17 Benzonatate (Tessalon Perle) 100 Mg Capsule 100 MG PO Q6H, #20 CAP 0 Refills Prov: CHRISTINA OLIVAREZ 11/09/17 Amoxicillin (Amoxicillin) 500 Mg Capsule 500 MG PO TID for 7 Days, #21 CAP 0 Refills Prov: CHRISTINA OLIVAREZ 11/09/17 Work/School Note: Work Release Form Date Seen in the Emergency Department: Nov 09, 2017 Return to Work: Nov 12, 2017 Restrictions: Need Release from Doctor Other Restrictions Listed Below: No driving until cleared by physician or neurologist. CHRISTINA OLIVAREZ Nov 09, 2017 16:55
[2017-11-09] MEDS ORDERED: KETOROLAC 30 MG/ML VIAL IM ONE (17:00)
[2017-11-09] MEDS ORDERED: BENZ-13 PO (17:01)
[2017-11-09] MEDS ORDERED: ONDA4TAB11 PO (17:01)
[2017-11-09] MEDS ORDERED: AMOX500C2 PO (17:01)
[2017-11-09 17:26] VITALS: BP 130/90
== END 2017-11-09 17:26 | disposition home or self-care (01) ==
LOC: EDUNIT# 15:40 → ER 15:43
DX: H65.193 Other acute nonsuppurative otitis media, bilateral (principal); J40 Bronchitis, not specified as acute or chronic; K02.9 Dental caries, unspecified; J06.9 Acute upper respiratory infection, unspecified; R25.8 Other abnormal involuntary movements; J45.909 Unspecified asthma, uncomplicated; G40.909 Epilepsy, unspecified, not intractable, without status epilepticus; F17.210 Nicotine dependence, cigarettes, uncomplicated
CPT/HCPCS: 87804; 99284

== ENCOUNTER 2019-07-12 23:41 | Emergency (ER) | payer SELFPAY ==
[~2019-07-12] VITALS: Ht 182.9 cm; Wt 95.4 kg
[~2019-07-12 23:41] MED LIST changes: +BENZ100C18 PO; +HYDR-4226 PO; -HYDR-757 PO; +NAPR-915 PO; -NAPR500T4 PO; +ONDA4TAB11 PO
[2019-07-13] MEDS ORDERED: NS IV 1000 ML 1,000 ML IV ONE (00:48)
[2019-07-13 00:54] LABS: BASOPHILS % (AUTO) 0 % (0-10); EOSINOPHILS % (AUTO) 0 % (0-10); HEMATOCRIT 41 % (40-54); HEMOGLOBIN 14.2 G/DL (13.3-17.7); LYMPHOCYTES # (AUTO) 3.6 X 10^3 (1.0-4.0); LYMPHOCYTES % (AUTO) 49 % (12-44); MEAN CORPUSCULAR HEMOGLOBIN 29 PG (25-34); MEAN CORPUSCULAR HGB CONC 35 G/DL (32-36); MEAN CORPUSCULAR VOLUME 84 FL (80-99); MEAN PLATELET VOLUME 9.1 FL (7.4-10.4); MONOCYTES # (AUTO) 0.9 X 10^3 (0.0-1.0); MONOCYTES % (AUTO) 12 % (0-12); NEUTROPHILS # (AUTO) 2.9 X 10^3 (1.8-7.8); NEUTROPHILS % (AUTO) 39 % (42-75); PLATELET COUNT 218 10^3/uL (130-400); RED CELL DISTRIBUTION WIDTH 12.7 % (10.0-14.5); WHITE BLOOD COUNT 7.3 10^3/uL (4.3-11.0)
[2019-07-13 00:56] LABS: BILIRUBIN,URINE NEGATIVE (NEGATIVE); CLARITY,URINE CLEAR; COLOR,URINE YELLOW; GLUCOSE, URINE (UA) NEGATIVE (NEGATIVE); KETONES,URINE 1+ (NEGATIVE); LEUKOCYTE ESTERASE ,URINE NEGATIVE (NEGATIVE); NITRITE,URINE NEGATIVE (NEGATIVE); PH,URINE 6 (5-9); PROTEIN,URINE 2+ (NEGATIVE); UROBILINOGEN,URINE 1 MG/DL (NORMAL)
--- NOTE | 2019-07-13 00:57 | ED Abdominal Pain ---
General Chief Complaint: Abdominal/GI Problems Stated Complaint: BLOOD IN STOOL, ABD PAIN Nursing Triage Note: PT ARRIVES WITH C/O ABD PAIN AND REPORTS BRIGHT RED BLOOD IN STOOLS. PT STATES HE WEAS HELPING A FRIEND MOVE OVER THE WEEKEND AND THEN SYMPTOMS STARTED. PT STATES GENERALIZED ABD PAIN. PT DENIES N/V/D/FEVER. Sepsis Screen: No Definite Risk Source of Information: Patient Exam Limitations: No Limitations (AMADEO TANNER) History of Present Illness Date Seen by Provider: Jul 13, 2019 Time Seen by Provider: 00:30 Initial Comments Pt presents with abdominal pain and blood on the toilet paper and on the stool in the toilet that started about 2 days ago. He states he was helping a friend move and ate lunch, but after lunch he used the restroom and noticed blood on th e toilet paper. He also noticed a cramping/achy pain in his left lower abdomen at the same time. The next morning when he urinated he noticed the urine was reddish/brown. The blood has been persistent every time he wipes after defecation. He says the urine has also been the same dark color throughout the day. He has a history of an ear infection post ear cecum cleaning that he has been taking an otic and oral antibiotic for 7 days. Timing/Duration: 1-2 Days Severity/Quality: Moderate, Aching, Cramping Location: RLQ, LLQ Radiation: No Radiation Activities at Onset: None Modifying Factors: Worsens With Movement, Worsens With Palpation Associated Symptoms: Denies Symptoms; No Chest Pain, No Fever/Chills, No Headache, No Nausea/Vomiting, No Shortness of Air (AMADEO TANNER) Initial Comments Here with right lower quadrant and left-sided abdominal pain that has been going on for the last 1-2 days. He was helping his friend move and was moving lots of furniture. On Saturday, after lunch she noted that he had blood on his toilet paper after a bowel movement and then has had it several times over the last 24 hours. Only has blood when he has a bowel movement and none without. Denies pain with wiping and does not believe he has hemorrhoids. Has never had anything like this before. He is currently on amoxicillin for an ear infection. Timing/Duration: 1-2 Days Severity/Quality: Moderate, Aching, Cramping Location: LUQ, RLQ, LLQ Radiation: Back Activities at Onset: None Modifying Factors: Worsens With Lying down; Improves With Resting Associated Symptoms: No Back Pain, No Weakness (SONIA DILL MD) Allergies and Home Medications Allergies Coded Allergies: EMERALDANo Known Allergies (Unverified Allergy, Mild, 12/09/15) No Known Drug Allergies (Unverified , 12/22/09) Home Medications Amoxicillin 500 Mg Capsule, 500 MG PO TID Prescribed by: CELESTE BOWLES on 03/10/171810 Amoxicillin 500 Mg Capsule, 500 MG PO TID Prescribed by: CHRISTINA OLIVAREZ on 11/09/171700 Benzonatate 100 Mg Capsule, 100 MG PO Q6H Prescribed by: CHRISTINA OLIVAREZ on 11/09/171700 Cyclobenzaprine HCl 10 Mg Tablet, 10 MG PO Q8H Prescribed by: KATIE MCCAIN on 08/21/162232 Hydrocodone/Acetaminophen 1 Each Tablet, 1 EACH PO Q4H PRN for PAIN-SEVERE Prescribed by: CELESTE BOWLES on 03/10/171810 Naproxen 500 Mg Tablet, 500 MG PO BID Prescribed by: KATIE MCCAIN on 08/21/162232 Ondansetron 4 Mg Tab.rapdis, 4 MG PO Q6H PRN for NAUSEA/VOMITING Prescribed by: CHRISTINA OLIVAREZ on 11/09/171700 Tramadol HCl 50 Mg Tablet, 50 MG PO Q6H PRN for PAIN-MODERATE TO SEVERE Prescribed by: CELESTE BOWLES on 08/19/171912 Patient Home Medication List Home Medication List Reviewed: Yes (SONIA DILL MD) Review of Systems Review of Systems Constitutional: no symptoms reported; No chills, No fever EENTM: No Symptoms Reported Respiratory: No Symptoms Reported; Denies Cough, Denies Shortness of Air Cardiovascular: No Symptoms Reported; Denies Chest Pain, Denies Palpitations Gastrointestinal: Abdomen Distended, Abdominal Pain; Denies Constipated, Denies Diarrhea, Denies Nausea; Rectal Bleeding; Denies Vomiting Genitourinary: Denies Burning; Hematuria, Other (Brown colored) Musculoskeletal: no symptoms reported Skin: no symptoms reported Psychiatric/Neurological: No Symptoms Reported Endocrine: No Symptoms Reported Hematologic/Lymphatic: No Symptoms Reported (AMADEO TANNER) Constitutional: no symptoms reported EENTM: No Symptoms Reported Respiratory: Denies Shortness of Air Cardiovascular: Denies Chest Pain, Denies Edema Gastrointestinal: Abdominal Pain, Rectal Bleeding Genitourinary: Denies Frequency, Denies Pain; Other (Brown colored) Musculoskeletal: no symptoms reported Skin: no symptoms reported (SONIA DILL MD) All Other Systems Reviewed Negative Unless Noted: Yes (SONIA DILL MD) Past Fihkjmx-Nbvhew-Ghxuuz Hx Past Med/Social Hx: Reviewed Nursing Past Med/Soc Hx (SONIA DILL MD) Patient Social History Alcohol Use: Occasionally Uses Number of Drinks Today: AA Alcohol Beverage of Choice: Beer Recreational Drug Use: No Smoking Status: Current Everyday Smoker Type Used: Cigarettes Recent Foreign Travel: No Contact w/Someone Who Travel: No Recent Infectious Disease Expo: No Recent Hopitalizations: No Physical Abuse: No Sexual Abuse: No Mistreated: No Fear: No (AMADEO TANNER) Immunizations Up To Date Tetanus Booster (TDap): Unknown Date of Influenza Vaccine: Sep 18, 2015 (AMADEO TANNER) Seasonal Allergies Seasonal Allergies: No (AMADEO TANNER) Past Medical History Surgeries: Yes (RIGHT ARM REPAIR--CUT ARM ON CHICKEN WIRE/GLASS) Orthopedic Respiratory: Yes Asthma Cardiac: No Neurological: Yes (h/o seizures-- stress induced petite mal seizures)) Seizure Disorder Reproductive Disorders: No Sexually Transmitted Disease: No HIV/AIDS: No Genitourinary: No Gastrointestinal: No Musculoskeletal: Yes Degenerate Disk Disease, Chronic Back Pain Endocrine: No Cancer: No Psychosocial: No Integumentary: No Blood Disorders: No Adverse Reaction/Blood Tranf: No (AMADEO TANNER) Genitourinary: Yes (atrophic right kidney) (SONIA DILL MD) Family Medical History Reviewed Nursing Family Hx (SONIA DILL MD) No Pertinent Family Hx (AMADEO TANNER) No Pertinent Family Hx (SONIA DILL MD) Physical Exam Vital Signs Vital Signs - First Documented 07/13/19 00:19 Temp 98.4 Pulse 70 Resp 18 B/P (MAP) 131/79 (96) O2 Delivery Room Air (SONIA DILL MD) Vital Signs Capillary Refill : Less Than 3 Seconds [facility] Height/Weight/BMI Height: 6'0" Weight: 210lbs. 6.0oz. [id number]; 28.12 BMI Method:Estimated General Appearance: WD/WN, mild distress HEENT: PERRL/EOMI, normal ENT inspection, pharynx normal Neck: non-tender, full range of motion Respiratory: chest non-tender, lungs clear, normal breath sounds, no respiratory distress, no accessory muscle use Cardiovascular: regular rate, rhythm, no edema, no gallop, no JVD, no murmur Peripheral Pulses: 2+ Dorsalis Pedis (R), 2+ Left Dors-Pedis (L), 2+ Radial Pulses (R), 2+ Radial Pulses (L) Gastrointestinal: normal bowel sounds, no organomegaly, tenderness (LLQ significantly tender, RLQ ) Extremities: normal range of motion, no pedal edema, no calf tenderness Neurologic/Psychiatric: no motor/sensory deficits, alert, normal mood/affect, oriented x 3 Skin: normal color, warm/dry (AMADEO TANNER) General Appearance: WD/WN HEENT: PERRL/EOMI, pharynx normal Neck: non-tender, full range of motion Respiratory: lungs clear, normal breath sounds Cardiovascular: regular rate, rhythm, no murmur Gastrointestinal: normal bowel sounds, no organomegaly Extremities: normal range of motion, no pedal edema Neurologic/Psychiatric: alert Skin: normal color, warm/dry (SONIA DILL MD) Progress/Results/Core Measures Results/Orders Lab Results Laboratory Tests Test 07/13/19 00:17 07/13/19 00:18 Range/Units White Blood Count 7.3 4.3-11.0 10^3/uL Red Blood Count 4.87 4.35-5.85 10^6/uL Hemoglobin 14.2 13.3-17.7 G/DL Hematocrit 41 40-54 % Mean Corpuscular Volume 84 80-99 FL Mean Corpuscular Hemoglobin 29 25-34 PG Mean Corpuscular Hemoglobin Concent 35 32-36 G/DL Red Cell Distribution Width 12.7 10.0-14.5 % Platelet Count 218 130-400 10^3/uL Mean Platelet Volume 9.1 7.4-10.4 FL Neutrophils (%) (Auto) 39 L 42-75 % Lymphocytes (%) (Auto) 49 H 12-44 % Monocytes (%) (Auto) 12 0-12 % Eosinophils (%) (Auto) 0 0-10 % Basophils (%) (Auto) 0 0-10 % Neutrophils # (Auto) 2.9 1.8-7.8 X 10^3 Lymphocytes # (Auto) 3.6 1.0-4.0 X 10^3 Monocytes # (Auto) 0.9 0.0-1.0 X 10^3 Eosinophils # (Auto) 0.0 0.0-0.3 10^3/uL Basophils # (Auto) 0.0 0.0-0.1 10^3/uL Sodium Level 141 135-145 MMOL/L Potassium Level 3.6 3.6-5.0 MMOL/L Chloride Level 107 98-107 MMOL/L Carbon Dioxide Level 23 21-32 MMOL/L Anion Gap 11 5-14 MMOL/L Blood Urea Nitrogen 19 H 7-18 MG/DL Creatinine 1.49 H 0.60-1.30 MG/DL Estimat Glomerular Filtration Rate 53 BUN/Creatinine Ratio 13 Glucose Level 91 70-105 MG/DL Calcium Level 9.3 8.5-10.1 MG/DL Corrected Calcium 9.1 8.5-10.1 MG/DL Total Bilirubin 0.5 0.1-1.0 MG/DL Aspartate Amino Transf (AST/SGOT) 28 5-34 U/L Alanine Aminotransferase (ALT/SGPT) 54 0-55 U/L Alkaline Phosphatase 76 40-136 U/L C-Reactive Protein High Sensitivity 0.26 0.00-0.50 MG/DL Total Protein 6.6 6.4-8.2 GM/DL Albumin 4.3 3.2-4.5 GM/DL Urine Color YELLOW Urine Clarity CLEAR Urine pH 6 5-9 Urine Specific [place] 1.020 1.016-1.022 Urine Protein 2+ H NEGATIVE Urine Glucose (UA) NEGATIVE NEGATIVE Urine Ketones 1+ H NEGATIVE Urine Nitrite NEGATIVE NEGATIVE Urine Bilirubin NEGATIVE NEGATIVE Urine Urobilinogen 1 NORMAL MG/DL Urine Leukocyte Esterase NEGATIVE NEGATIVE Urine RBC (Auto) NEGATIVE NEGATIVE Urine RBC NONE /HPF Urine WBC NONE /HPF Urine Squamous Epithelial Cells RARE /HPF Urine Crystals NONE /LPF Urine Bacteria NEGATIVE /HPF Urine Casts NONE /LPF Urine Mucus SMALL H /LPF Urine Culture Indicated NO (SONIA DILL MD) My Orders Orders - SONIA DILL MD Cbc With Automated Diff (07/13/19 00:48) Comprehensive Metabolic Panel (07/13/19 00:48) Hs C Reactive Protein (07/13/19 00:48) Ua Culture If Indicated (07/13/19 00:48) Fecal Occult Bedside (07/13/19 00:48) Ed Iv/Invasive Line Start (07/13/19 00:48) Ns Iv 1000 Ml (Sodium Chloride 0.9%) (07/13/19 00:48) Ct Abdomen/Pelvis W (07/13/19 01:27) Ed Iv/Invasive Line Start (07/13/19 02:25) Lactated Ringers (Lr 1000 Ml Iv Solution (07/13/19 02:25) (SONIA DILL MD) Medications Given in ED Current Medications Medications Dose Ordered Sig/Stuart Route Start Time Stop Time Status Last Admin Dose Admin Lactated Ringer's 1,000 ml @ 0 mls/hr Q0M ONCE IV 07/13/19 02:25 07/13/19 02:27 DC 07/13/19 02:39 1,000 MLS/HR Sodium Chloride 1,000 ml @ 0 mls/hr Q0M ONCE IV 07/13/19 00:48 07/13/19 00:50 DC 07/13/19 00:57 0 MLS/HR (SONIA DILL MD) Vital Signs/I&O 07/13/19 00:19 Temp 98.4 Pulse 70 Resp 18 B/P (MAP) 131/79 (96) O2 Delivery Room Air (SONIA DILL MD) Blood Pressure Mean: 96 Progress Progress Note : Time: 00:30 Progress Note Pt seen by me. Patient reports having blood on the toilet paper and on the stool. He also reports brown colored urine that began yesterday. His abdomen was significantly tender in the LLQ and moderately tender in the RLQ. I talked with Dr Dill about the patient and he ordered a CBC, CMP, UA. We will monitor patient and wait on labs with anticipation of CT abdomen. (AMADEO TANNER) Progress Note : Progress Note I have seen and evaluated the patient and agree with above except as indicated. I have directed the plan of care. IV, labs, UA, normal saline 1 L bolus ordered. On evaluation, patient would allow for external evaluation for hemorrhoids. Would not allow for digital rectal exam. Patient was informed that this does limit evaluation for internal hemorrhoids and masses. CT abdomen and pelvis ordered. Monitor patient. 0235: LR [address] results. 0316: Discussed results with the patient. I did discuss with him the need for follow- up especially for rectal bleeding and concerns for rectal or colon cancer. He states that he will. Otherwise no acute findings. Discharged home with return precautions. Patient verbalize understanding instructions and agreement with plan. (SONIA DILL MD) Diagnostic Imaging Diagonstic Imaging: CT Plain Films/CT/US/NM/MRI: abdomen, pelvis Comments Atrophic right kidney. Otherwise unremarkable exam. Reviewed: Reviewed [place] Hawk Study, Reviewed by Me (SONIA DILL MD) Departure Impression Primary Impression: Rectal bleeding Additional Impression: Atrophy of right kidney Disposition: HOME, SELF-CARE Condition: Stable Departure-Patient Inst. Decision time for Depature: 03:18 (SONIA DILL MD) Referrals: DELANEY LOW DO NO,LOCAL PHYSICIAN (PCP) Primary Care Physician Patient Instructions: Bloody Stools, Adult (DC) Add. Discharge Instructions: All discharge instructions reviewed with patient and/or family. Voiced understanding. You have a low functioning right kidney that is very small. You should consider this in the future and avoid medications that are hard on your kidneys including ibuprofen and Naprosyn/Aleve. Your rectal bleeding needs further workup including possible colonoscopy. Call and make appointment with the surgeon listed or your doctor for further evaluation. Return for worse bleeding, pain, weakness, breathing problems, fever or other concerns as needed. Drink plenty of fluids. [facility]NER [facility] Jul 13, 2019 00:57 SONIA DILL MD Jul 13, 2019 01:32
[2019-07-13 01:03] LABS: BACTERIA,URINE NEGATIVE /HPF; SQUAMOUS EPITHELIAL CELL,UR RARE /HPF
[2019-07-13 01:05] LABS: CREATININE SERUM 1.49 MG/DL (0.60-1.30); POTASSIUM 3.6 MMOL/L (3.6-5.0)
[2019-07-13 01:06] LABS: ALBUMIN 4.3 GM/DL (3.2-4.5); BILIRUBIN,TOTAL 0.5 MG/DL (0.1-1.0); CALCIUM 9.3 MG/DL (8.5-10.1); TOTAL PROTEIN 6.6 GM/DL (6.4-8.2)
[2019-07-13] MEDS ORDERED: LACTATED RINGERS 1,000 ML IV ONE (02:25)
[2019-07-13 03:32] VITALS: BP 129/77
--- NOTE | 2019-07-13 07:20 | Diagnostic Imaging Report ---
PROCEDURE: CT abdomen and pelvis with contrast. TECHNIQUE: Multiple contiguous axial images were obtained through the abdomen and pelvis after administration of intravenous contrast. Auto Exposure Controls were utilized during the CT exam to meet ALARA standards for radiation dose reduction. INDICATION: Bloody stools. EXAMINATION: CT abdomen and pelvis with contrast 07/13/2019. COMPARISONS: 01/02/2014 FINDINGS: Within the visualized lung bases, a few very tiny nodules are noted less than 5 mm in size. This is fairly stable from previous imaging. There is no evidence for acute osseous abnormality. 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 Within the abdomen and pelvis, there is a small hiatal hernia. Fatty infiltration throughout the liver. Spleen, adrenal glands and pancreas unremarkable. Gallbladder contracted. Right kidney markedly atrophied, likely congenital. Left kidney unremarkable for acute process. There is no evidence for free fluid or air. No inflammatory changes about the visualized bowel loops. Visualized appendix unremarkable. IMPRESSION: 1. Incidental findings as discussed above including an atrophic right kidney. No acute abnormality appreciated. Findings agree with the preliminary report. Dictated by: Dictated on workstation # [id number]
== END 2019-07-13 03:35 | disposition home or self-care (01) ==
LOC: EDUNIT# 23:41 → ER 23:44
DX: K62.5 Hemorrhage of anus and rectum (principal); N26.1 Atrophy of kidney (terminal); J45.909 Unspecified asthma, uncomplicated; G40.909 Epilepsy, unspecified, not intractable, without status epilepticus; F17.210 Nicotine dependence, cigarettes, uncomplicated
CPT/HCPCS: 36415; 74177; 80053; 81000; 85025; 86141

== ENCOUNTER 2020-08-11 10:12 | Emergency (ER) | payer SELFPAY ==
[~2020-08-11] VITALS: Ht 190 cm; Wt 102.0 kg
[2020-08-11 10:40] VITALS: BP 147/99
--- NOTE | 2020-08-11 10:48 | NUR ---
PT UPSET WE ARE DRAWING MORE BLOOD WHEN HE JUST HAD BLOOD DRAWN X2 DAYS AGO. EXPLAINED TO PT THE REASONING AND HE STATES "FINE, JUST DO WHAT YOU NEED TO".
--- NOTE | 2020-08-11 10:49 | ED Abdominal Pain ---
General Stated Complaint: R SIDE PAIN Source of Information: Patient Exam Limitations: No Limitations History of Present Illness Date Seen by Provider: Aug 11, 2020 Time Seen by Provider: 10:47 Initial Comments To ER with right-sided abdominal pain/flank pain. States has been going on for 3 weeks and he thought was a pulled muscle from playing softball initially. He had labs done in the clinic a few days ago, had an outpatient CT ordered yesterday but was told he would need to have money up front. He didn't have money upfront nor did he have time to come to the emergency room yesterday as they suggested he could also do. So he comes today. No nausea vomiting fevers or chills. Timing/Duration: 1-2 Days Severity/Quality: Moderate Location: RLQ, Flank Radiation: No Radiation Activities at Onset: None Associated Symptoms: Denies Symptoms Allergies and Home Medications Allergies Coded Allergies: NKANo Known Allergies (Unverified Allergy, Mild, 12/09/15) No Known Drug Allergies (Unverified , 12/22/09) Home Medications Acetaminophen/Diphenhydramine 1 Each Tablet, 1 EACH PO Q4H PRN for PAIN-MODERATE (5-7) Prescribed by: CELESTE BOWLES on 08/11/20 115 Amoxicillin 500 Mg Capsule, 500 MG PO TID Prescribed by: CELESTE BOWLES on 03/10/171810 Amoxicillin 500 Mg Capsule, 500 MG PO TID Prescribed by: CHRISTINA OLIVAREZ on 11/09/17 170 Benzonatate 100 Mg Capsule, 100 MG PO Q6H Prescribed by: CHRISTINA OLIVAREZ on 11/09/17 1701 Cyclobenzaprine HCl 10 Mg Tablet, 10 MG PO Q8H Prescribed by: KATIE MCCAIN on 08/21/16 223 Hydrocodone/Acetaminophen 1 Each Tablet, 1 EACH PO Q4H PRN for PAIN-SEVERE Prescribed by: CELESTE BOWLES on 03/10/17 181 Naproxen 500 Mg Tablet, 500 MG PO BID Prescribed by: KATIE MCCAIN on 08/21/16 223 Naproxen 500 Mg Tablet, 500 MG PO BID PRN for PAIN-MODERATE (5-7) Prescribed by: CELESTE BOWLES on 08/11/20 1154 Ondansetron 4 Mg Tab.rapdis, 4 MG PO Q6H PRN for NAUSEA/VOMITING Prescribed by: CHRISTINA OLIVAREZ on 11/09/17 1701 Tramadol HCl 50 Mg Tablet, 50 MG PO Q6H PRN for PAIN-MODERATE TO SEVERE Prescribed by: CELESTE BOWLES on 08/19/17 191 Patient Home Medication List Home Medication List Reviewed: Yes Review of Systems Review of Systems Constitutional: see HPI EENTM: No Symptoms Reported Respiratory: No Symptoms Reported Cardiovascular: No Symptoms Reported Gastrointestinal: See HPI, Abdominal Pain; Denies Constipated, Denies Diarrhea, Denies Nausea Genitourinary: No Symptoms Reported Musculoskeletal: no symptoms reported Skin: no symptoms reported Psychiatric/Neurological: No Symptoms Reported Endocrine: No Symptoms Reported Hematologic/Lymphatic: No Symptoms Reported Past Uqmpdrs-Iqmqef-Egpgby Hx Patient Social History Alcohol Beverage of Choice: Beer Type Used: Cigarettes Recent Foreign Travel: No Contact w/Someone Who Travel: No Recent Hopitalizations: No Immunizations Up To Date Tetanus Booster (TDap): Unknown Date of Influenza Vaccine: Sep 18, 2015 Seasonal Allergies Seasonal Allergies: No Past Medical History Surgeries: Yes (RIGHT ARM REPAIR--CUT ARM ON CHICKEN WIRE/GLASS) Orthopedic Respiratory: Yes Asthma Cardiac: No Neurological: Yes (h/o seizures-- stress induced petite mal seizures)) Seizure Disorder Reproductive Disorders: No Sexually Transmitted Disease: No HIV/AIDS: No Genitourinary: Yes (atrophic right kidney) Gastrointestinal: No Musculoskeletal: Yes Degenerate Disk Disease, Chronic Back Pain Endocrine: No Cancer: No Psychosocial: No Integumentary: No Blood Disorders: No Adverse Reaction/Blood Tranf: No Family Medical History No Pertinent Family Hx Physical Exam Vital Signs Vital Signs - First Documented 08/11/20 10:40 Temp 35.3 Pulse 65 Resp 18 B/P (MAP) 147/99 (115) Pulse Ox 98 O2 Delivery Room Air Capillary Refill : Height/Weight/BMI Height: 6'0" Weight: 210lbs. 6.0oz. [id number]; 28.12 BMI Method:Estimated General Appearance: WD/WN, no apparent distress HEENT: PERRL/EOMI, normal ENT inspection Respiratory: no respiratory distress, no accessory muscle use Gastrointestinal: normal bowel sounds, soft, tenderness Neurologic/Psychiatric: alert, normal mood/affect, oriented x 3 Skin: normal color, warm/dry Progress/Results/Core Measures Results/Orders Lab Results Laboratory Tests Test 08/11/20 10:48 08/11/20 11:17 Range/Units White Blood Count 4.9 4.3-11.0 10^3/uL Red Blood Count 5.28 4.30-5.52 10^6/uL Hemoglobin 15.1 13.3-17.7 g/dL Hematocrit 46 40-54 % Mean Corpuscular Volume 86 80-99 fL Mean Corpuscular Hemoglobin 29 25-34 pg Mean Corpuscular Hemoglobin Concent 33 32-36 g/dL Red Cell Distribution Width 12.3 10.0-14.5 % Platelet Count 220 130-400 10^3/uL Mean Platelet Volume 8.7 L 9.0-12.2 fL Immature Granulocyte % (Auto) 0 % Neutrophils (%) (Auto) 46 42-75 % Lymphocytes (%) (Auto) 46 H 12-44 % Monocytes (%) (Auto) 8 0-12 % Eosinophils (%) (Auto) 0 0-10 % Basophils (%) (Auto) 0 0-10 % Neutrophils # (Auto) 2.3 1.8-7.8 10^3/uL Lymphocytes # (Auto) 2.2 1.0-4.0 10^3/uL Monocytes # (Auto) 0.4 0.0-1.0 10^3/uL Eosinophils # (Auto) 0.0 0.0-0.3 10^3/uL Basophils # (Auto) 0.0 0.0-0.1 10^3/uL Immature Granulocyte # (Auto) 0.0 0.0-0.1 10^3/uL Sodium Level 138 135-145 MMOL/L Potassium Level 4.4 3.6-5.0 MMOL/L Chloride Level 107 98-107 MMOL/L Carbon Dioxide Level 23 21-32 MMOL/L Anion Gap 8 5-14 MMOL/L Blood Urea Nitrogen 11 7-18 MG/DL Creatinine 0.94 0.60-1.30 MG/DL Estimat Glomerular Filtration Rate > 60 BUN/Creatinine Ratio 12 Glucose Level 94 70-105 MG/DL Calcium Level 9.1 8.5-10.1 MG/DL Corrected Calcium 8.9 8.5-10.1 MG/DL Total Bilirubin 0.3 0.1-1.0 MG/DL Aspartate Amino Transf (AST/SGOT) 19 5-34 U/L Alanine Aminotransferase (ALT/SGPT) 31 0-55 U/L Alkaline Phosphatase 75 40-136 U/L C-Reactive Protein High Sensitivity 0.10 0.00-0.50 MG/DL Total Protein 6.9 6.4-8.2 GM/DL Albumin 4.3 3.2-4.5 GM/DL Urine Color YELLOW Urine Clarity CLEAR Urine pH 5.5 5-9 Urine Specific [place] 1.025 H 1.016-1.022 Urine Protein NEGATIVE NEGATIVE Urine Glucose (UA) NEGATIVE NEGATIVE Urine Ketones NEGATIVE NEGATIVE Urine Nitrite NEGATIVE NEGATIVE Urine Bilirubin NEGATIVE NEGATIVE Urine Urobilinogen 0.2 < = 1.0 MG/DL Urine Leukocyte Esterase NEGATIVE NEGATIVE Urine RBC (Auto) NEGATIVE NEGATIVE Urine RBC NONE /HPF Urine WBC NONE /HPF Urine Crystals NONE /LPF Urine Bacteria NEGATIVE /HPF Urine Casts NONE /LPF Urine Mucus NEGATIVE /LPF Urine Culture Indicated NO My Orders Orders - CELESTE BOWLES APRN Cbc With Automated Diff (08/11/20 10:46) Hs C Reactive Protein (08/11/20 10:46) Comprehensive Metabolic Panel (08/11/20 10:46) Ct Abd/Pelvis Wo(Kidney Stone) (08/11/20 10:46) Vital Signs/I&O 08/11/20 10:40 Temp 35.3 Pulse 65 Resp 18 B/P (MAP) 147/99 (115) Pulse Ox 98 O2 Delivery Room Air Departure Impression Primary Impression: Right flank pain Additional Impression: [id number] RADICULOPATHY Disposition: HOME, SELF-CARE Condition: Stable Departure-Patient Inst. Decision time for Depature: 11:52 Referrals: NO,LOCAL PHYSICIAN (PCP/Family) Primary Care Physician Patient Instructions: Flank Pain (DC) Add. Discharge Instructions: 1. Return to er for any concerns 2. Medication as directed. 3. See your doctor this week for recheck Scripts Acetaminophen/Diphenhydramine (Percogesic 325-12.5 mg Tablet) 1 Each Tablet 1 EACH PO Q4H PRN for PAIN-MODERATE (5-7), #14 TAB Prov: CELESTE BOWLES APRN 08/11/20 Naproxen (Naprosyn) 500 Mg Tablet 500 MG PO BID PRN for PAIN-MODERATE (5-7), #30 TAB 0 Refills Prov: CELESTE BOWLES APRN 08/11/20 CELESTE BOWLES APRN Aug 11, 2020 10:49
[2020-08-11 11:03] LABS: BASOPHILS % (AUTO) 0 % (0-10); EOSINOPHILS % (AUTO) 0 % (0-10); HEMATOCRIT 46 % (40-54); HEMOGLOBIN 15.1 g/dL (13.3-17.7); LYMPHOCYTES # (AUTO) 2.2 10^3/uL (1.0-4.0); LYMPHOCYTES % (AUTO) 46 % (12-44); MEAN CORPUSCULAR HEMOGLOBIN 29 pg (25-34); MEAN CORPUSCULAR HGB CONC 33 g/dL (32-36); MEAN CORPUSCULAR VOLUME 86 fL (80-99); MEAN PLATELET VOLUME 8.7 fL (9.0-12.2); MONOCYTES # (AUTO) 0.4 10^3/uL (0.0-1.0); MONOCYTES % (AUTO) 8 % (0-12); NEUTROPHILS # (AUTO) 2.3 10^3/uL (1.8-7.8); NEUTROPHILS % (AUTO) 46 % (42-75); PLATELET COUNT 220 10^3/uL (130-400); WHITE BLOOD COUNT 4.9 10^3/uL (4.3-11.0)
[2020-08-11 11:07] LABS: ALBUMIN 4.3 GM/DL (3.2-4.5); CHLORIDE 107 MMOL/L (98-107); POTASSIUM 4.4 MMOL/L (3.6-5.0); SODIUM 138 MMOL/L (135-145)
[2020-08-11 11:08] LABS: CALCIUM 9.1 MG/DL (8.5-10.1)
[2020-08-11 11:10] LABS: GLUCOSE 94 MG/DL (70-105); TOTAL PROTEIN 6.9 GM/DL (6.4-8.2)
[2020-08-11 11:11] LABS: BILIRUBIN,TOTAL 0.3 MG/DL (0.1-1.0); CARBON DIOXIDE 23 MMOL/L (21-32)
[2020-08-11 11:13] LABS: ALKALINE PHOSPHATASE 75 U/L (40-136); CREATININE SERUM 0.94 MG/DL (0.60-1.30); GFR ESTIMATED > 60
[2020-08-11 11:14] LABS: BUN/CREATININE RATIO 12
[2020-08-11 11:16] LABS: ALANINE AMINOTRANSFERASE 31 U/L (0-55)
[2020-08-11 11:21] LABS: BILIRUBIN,URINE NEGATIVE (NEGATIVE); CLARITY,URINE CLEAR; COLOR,URINE YELLOW; GLUCOSE, URINE (UA) NEGATIVE (NEGATIVE); KETONES,URINE NEGATIVE (NEGATIVE); LEUKOCYTE ESTERASE ,URINE NEGATIVE (NEGATIVE); NITRITE,URINE NEGATIVE (NEGATIVE); PH,URINE 5.5 (5-9); PROTEIN,URINE NEGATIVE (NEGATIVE)
[2020-08-11] MEDS ORDERED: ACET-1672 PO (11:54)
[2020-08-11] MEDS ORDERED: NAPR-1071 PO (11:54)
[2020-08-11 11:57] LABS: BACTERIA,URINE NEGATIVE /HPF
--- NOTE | 2020-08-11 12:07 | Diagnostic Imaging Report ---
PROCEDURE: CT urinary tract, rule out kidney stone. TECHNIQUE: Multiple contiguous axial images were obtained through the abdomen and pelvis without the use of intravenous contrast. Auto Exposure Controls were utilized during the CT exam to meet ALARA standards for radiation dose reduction. INDICATION: Abdominal pain for three weeks. COMPARISON: Multiple priors, most recent performed on 07/13/2019. FINDINGS: Absence of intravenous contrast decreases sensitivity for detection of focal lesions and vascular pathology. LOWER THORAX: Lung bases are clear. Visualized heart is normal in size. LIVER: Normal. GALLBLADDER: Normal CT appearance. BILE DUCTS: No biliary ductal dilatation. SPLEEN: Normal. PANCREAS: Normal. No pancreatic ductal dilatation. ADRENAL GLANDS: No nodules. KIDNEYS AND URETERS: Stable appearance of the right kidney which is severely atrophic. No hydronephrosis on either side. No nephroureterolithiasis. STOMACH AND BOWEL: Stomach is physiologically-distended. No bowel obstruction. No inflammatory changes. APPENDIX: Normal. PELVIC ORGANS/BLADDER: Bladder is normal. Prostate gland is normal in size. PERITONEUM AND RETROPERITONEUM: No pneumoperitoneum. No abdominal free fluid or loculated collection. LYMPH NODES: No lymphadenopathy. VESSELS: Abdominal aorta is nonaneurysmal. ABDOMINAL WALL: Unremarkable. BONES: No acute osseous abnormality. Mild degenerative changes at the L5-S1 joint related to bilateral pars interarticularis defect of the L5 vertebral body. There is associated grade I spondylolisthesis of L5 on S1. IMPRESSION: No acute abdominal or pelvic pathology. No findings to account for the patient's abdominal pain. There is no hydronephrosis or nephroureterolithiasis. Incidental findings, including severely atrophic right kidney and bilateral L5 spondylolysis with associated grade I spondylolisthesis of L5 on S1, are unchanged from prior exams. Dictated by: Dictated on workstation # [id number]
[2020-08-11] MEDS ORDERED: HYDR-3870 PO (12:26)
== END 2020-08-11 12:34 | disposition home or self-care (01) ==
LOC: EDUNIT# 10:12 → ER 10:14
DX: M54.14 Radiculopathy, thoracic region (principal); G89.29 Other chronic pain; M54.9 Dorsalgia, unspecified
CPT/HCPCS: 36415; 74176; 80053; 81000; 85025; 86141

== ENCOUNTER 2021-04-26 10:39 | Emergency (ER) | payer SELFPAY ==
[~2021-04-26] VITALS: Ht 190 cm; Wt 102.0 kg
[~2021-04-26 10:39] MED LIST changes: +ACET-1672 PO; +HYDR-3870 PO
[2021-04-26 10:45] VITALS: BP 133/76
--- NOTE | 2021-04-26 11:18 | ED Back Pain ---
General Chief Complaint: Back Problems Stated Complaint: BACK PAIN Nursing Triage Note: ARRIVED VIA AMB TO ROOM 05 WITH COMPLAINTS OF CHRONIC BACK PAIN THAT BECAME WORSE AFTER BENDING OVER YESTERDAY. WAS SEEN AT [facility] TODAY AND HAD A X-RAY ALONG WITH A TORADOL AND A STEROID SHOT. A MRI WAS ORDERED BUT THE PT DOES NOT HAVE INSURANCE AND WAS TOLD BY HIS PROVIDER THERE TO COME TO THE ER TO GET THE MRI. Nursing Sepsis Screen: No Definite Risk Source of Information: Patient Exam Limitations: No Limitations History of Present Illness Date Seen by Provider: Apr 26, 2021 Time Seen by Provider: 10:58 Initial Comments Patient is a 40-year-old male who presents to the emergency department today with a chief complaint of low back pain. 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 Patient states that he took some naproxen without any relief of symptoms. He went to the walk-in clinic today through [facility] and was told that he may have a fracture in his back based on x-rays that he did there this morning. Patient was told that if he came to the emergency room he would likely get an MRI. Patient states that the pain is localized in his back, points to the lower lumbar/upper sacral area. He has no radiation of pain into the legs. No numbness, tingling or weakness. He denies bowel or bladder incontinence or urinary retention. He did receive a shot of steroids and Toradol while at the clinic. No other associated complaints or symptomatology. All other review of systems reviewed and negative except as stated above. Location: Lumbar Spine Timing/Duration: 24 Hours Severity: Severe Pain/Injury Location: Back Associated Symptoms: muscle spasms Allergies and Home Medications Allergies Coded Allergies: NKANo Known Allergies (Unverified Allergy, Mild, 12/09/15) No Known Drug Allergies (Unverified , 12/22/09) Home Medications Acetaminophen/Diphenhydramine 1 Each Tablet, 1 EACH PO Q4H PRN for PAIN-MODERATE (5-7) Prescribed by: CELESTE BOWLES on 08/11/20 1154 Amoxicillin 500 Mg Capsule, 500 MG PO TID Prescribed by: CELESTE BOWLES on 03/10/17 1811 Amoxicillin 500 Mg Capsule, 500 MG PO TID Prescribed by: CHRISTINA OLIVAREZ on 11/09/17 170 Benzonatate 100 Mg Capsule, 100 MG PO Q6H Prescribed by: CHRISTINA OLIVAREZ on 11/09/17 170 Cyclobenzaprine HCl 10 Mg Tablet, 10 MG PO Q8H Prescribed by: KATIE MCCAIN on 08/21/162232 Hydrocodone/Acetaminophen 1 Each Tablet, 1 EACH PO Q4H PRN for PAIN-SEVERE Prescribed by: CELESTE BOWLES on 03/10/17 181 Naproxen 500 Mg Tablet, 500 MG PO BID Prescribed by: KATIE MCCAIN on 08/21/162232 Naproxen 500 Mg Tablet, 500 MG PO BID PRN for PAIN-MODERATE (5-7) Prescribed by: CELESTE BOWLES on 08/11/20 115 Ondansetron 4 Mg Tab.rapdis, 4 MG PO Q6H PRN for NAUSEA/VOMITING Prescribed by: CHRISTINA OLIVAREZ on 11/09/17 170 Tramadol HCl 50 Mg Tablet, 50 MG PO Q6H PRN for PAIN-MODERATE TO SEVERE Prescribed by: CELESTE BOWLES on 08/19/17 191 Patient Home Medication List Home Medication List Reviewed: Yes Review of Systems Constitutional: see HPI EENTM: no symptoms reported Respiratory: no symptoms reported Cardiovascular: no symptoms reported Gastrointestinal: no symptoms reported Genitourinary: no symptoms reported Musculoskeletal: back pain Skin: no symptoms reported Psychiatric/Neurological: No Symptoms Reported All Other Systems Reviewed Negative Unless Noted: Yes Past Roqvdkn-Rjlugx-Abiodm Hx Patient Social History Alcohol Use: Denies Use Alcohol Beverage of Choice: Beer Smoking Status: Current Everyday Smoker Type Used: Cigarettes Recent Infectious Disease Expo: No Recent Hopitalizations: No Immunizations Up To Date Tetanus Booster (TDap): Unknown Date of Influenza Vaccine: Sep 18, 2015 Seasonal Allergies Seasonal Allergies: No Past Medical History Surgeries: Yes (RIGHT ARM REPAIR--CUT ARM ON CHICKEN WIRE/GLASS) Orthopedic Respiratory: Yes Asthma Cardiac: No Neurological: Yes (h/o seizures-- stress induced petite mal seizures)) Seizure Disorder Reproductive Disorders: No Sexually Transmitted Disease: No HIV/AIDS: No Genitourinary: Yes (atrophic right kidney) Gastrointestinal: No Musculoskeletal: Yes Degenerate Disk Disease, Chronic Back Pain Endocrine: No Cancer: No Psychosocial: No Integumentary: No Blood Disorders: No Adverse Reaction/Blood Tranf: No Family Medical History No Pertinent Family Hx Physical Exam Vital Signs Vital Signs - First Documented 04/26/21 10:45 Temp 36.1 Pulse 71 Resp 16 B/P (MAP) 133/76 (95) O2 Delivery Room Air Capillary Refill : Less Than 3 Seconds Height, Weight, BMI Height: 6'0" Weight: 210lbs. 6.0oz. [id number]; 28.00 BMI Method:Estimated General Appearance: No Apparent Distress, WD/WN Cardiovascular: Regular Rate, Rhythm, Other (ectopic beats) Respiratory: Lungs Clear, Normal Breath Sounds, No Accessory Muscle Use, No Respiratory Distress Gastrointestinal: Non Tender, Soft Back: Normal Inspection, Vertebral Tenderness (L4,5 and S1) Extremity: Normal Capillary Refill, Normal Inspection, Normal Range of Motion, Non Tender, No Pedal Edema Neurologic/Psychiatric: Alert, Oriented x3, No Motor/Sensory Deficits, Normal Mood/Affect, Other (2+ DTRs at the patella bilaterally, negative straight leg raise bilaterally) Skin: Normal Color, Warm/Dry Progress/Results/Core Measures Results/Orders My Orders Orders - VANDA MARTINEZ MD Lumbar Spine - 2-3 Views (04/26/21 11:09) Outside Films For Comparison (04/26/21 ) Vital Signs/I&O 04/26/21 10:45 Temp 36.1 Pulse 71 Resp 16 B/P (MAP) 133/76 (95) O2 Delivery Room Air Blood Pressure Mean: 95 Progress Progress Note : Time: 12:19 Progress Note Patient x-rays were uploaded from [facility]. These were reviewed by Dr. Jang, no evidence of bony fractures or dislocations was evident. He does have bilateral pars defects with some degenerative change at L 1. Patient declined hydrocodone here in the emergency department. He was sent home from [facility] with prescriptions for Flexeril and prednisone. I am going to add some hydrocodone to this cocktail. Patient is encouraged to use tojs-qkc-aiegpfu lidocaine patches as well as heating pads. He is neurologically normal has no evidence of radiculopathy or other acute pathology. Patient is given good return precautions. He verbalized understanding. All questions are sought and answered. Patient is stable for discharge. Departure Impression Primary Impression: Back pain Qualified Codes: M54.5 - Low back pain Disposition: 01 HOME, SELF-CARE Condition: Stable Departure-Patient Inst. Decision time for Depature: 12:21 Referrals: [facility] (PCP) Primary Care Physician MIRTHA AGUERO (Family) Primary Care Physician Patient Instructions: Low Back Pain (DC) Add. Discharge Instructions: Take the cyclobenzaprine and prednisone as directed by [facility]. I have given you a prescription for hydrocodone. Take this as needed every 6 hours. You can use heating pads or ice packs whichever feels better to your low back. You can also obtain tydp-uzz-sessxsc lidocaine patches also known as Salon Pas patches which can help with discomfort in the area of your low back that hurts the most. Use these as directed on the box. Come back to the emergency department for any worsening pain especially pain associated with numbness or weakness down your legs, loss of bowel or bladder function or any other emergent concerning symptoms. Scripts Hydrocodone/Acetaminophen (Hydrocodone-Acetamin 7.5-325) 1 Each Tablet 1 EACH PO Q6H for Pain, #15 TAB Prov: VANDA MARTINEZ MD 04/26/21 VANDA MARTINEZ MD Apr 26, 2021 11:18
[2021-04-26] MEDS ORDERED: HYDR-3817 PO (12:23)
== END 2021-04-26 12:37 | disposition home or self-care (01) ==
LOC: EDUNIT# 10:39 → ER 10:41
DX: M54.5 Low back pain (principal); J45.909 Unspecified asthma, uncomplicated; G89.29 Other chronic pain; M54.9 Dorsalgia, unspecified; F17.210 Nicotine dependence, cigarettes, uncomplicated; Z79.891 Long term (current) use of opiate analgesic; Z79.1 Long term (current) use of non-steroidal anti-inflammatories (NSAID); X50.1XXA Overexertion from prolonged static or awkward postures, initial encounter
CPT/HCPCS: 99281

== ENCOUNTER 2021-08-07 12:23 | Emergency (ER) | payer SELFPAY ==
[~2021-08-07] VITALS: Ht 190 cm; Wt 102.1 kg
[~2021-08-07 12:23] MED LIST changes: +HYDR-3817 PO
--- NOTE | 2021-08-07 12:51 | ED GU-Male ---
General Stated Complaint: UMBILICAL AREA/GROIN PAIN Source: patient Exam Limitations: no limitations History of Present Illness Date Seen by Provider: Aug 07, 2021 Time Seen by Provider: 12:41 Initial Comments This is a well-appearing 41-year-old male who presented to the ER with complaints of left groin pain that started approximately 2 days ago And he set up from a sitting position. States that he felt a popping sensation in his left groin and has been having persistent pain since. States that whenever he bends over it feels like something is "popping out in his groin". Additionally states that his spouse told him he had a spot bulging near his umbilicus yesterday, however it is not present today. States that pain is fine when he is resting and present whenever he is ambulating. No fever, chills, nausea, vomiting. Allergies and Home Medications Allergies Coded Allergies: NKANo Known Allergies (Unverified Allergy, Mild, 12/09/15) No Known Drug Allergies (Unverified , 12/22/09) Patient Home Medication List Acetaminophen/Diphenhydramine (Percogesic 325-12.5 mg Tablet) 1 Each Tablet, 1 EACH PO Q4H PRN for PAIN-MODERATE (5-7) Prescribed by: CELESTE BOWLES on 08/11/20 1154 Amoxicillin (Amoxicillin) 500 Mg Capsule, 500 MG PO TID Prescribed by: CELESTE BOWLES on 03/10/17 181 Amoxicillin (Amoxicillin) 500 Mg Capsule, 500 MG PO TID Prescribed by: CHRISTINA OLIVAREZ on 11/09/17 1701 Benzonatate (Tessalon Perles) 100 Mg Capsule, 100 MG PO Q6H Prescribed by: CHRISTINA OLIVAREZ on 11/09/17 1701 Cyclobenzaprine HCl (Cyclobenzaprine HCl) 10 Mg Tablet, 10 MG PO Q8H Prescribed by: KATIE MCCAIN on 08/21/16 2233 Hydrocodone/Acetaminophen (Hydrocodone/Acetaminophen 5 MG/325 MG TAB) 1 Each Tablet, 1 EACH PO Q4H PRN for PAIN-SEVERE Prescribed by: CELESTE BOWLES on 03/10/17 1811 Hydrocodone/Acetaminophen (Hydrocodone-Acetamin 7.5-325) 1 Each Tablet, 1 EACH P O Q6H Prescribed by: VANDA MARTINEZ on 04/26/21 1223 Naproxen (Naproxen) 500 Mg Tablet, 500 MG PO BID Prescribed by: KATIE MCCAIN on 08/21/16 2233 Naproxen (Naprosyn) 500 Mg Tablet, 500 MG PO BID PRN for PAIN-MODERATE (5-7) Prescribed by: CELESTE BOWLES on 08/11/20 1154 Ondansetron (Ondansetron Odt) 4 Mg Tab.rapdis, 4 MG PO Q6H PRN for NAUSEA/VOMITING Prescribed by: CHRISTINA OLIVAREZ on 11/09/17 1701 Tramadol HCl (Ultram) 50 Mg Tablet, 50 MG PO Q6H PRN for PAIN-MODERATE TO SEVERE Prescribed by: CELESTE BOWLES on 08/19/17 1913 Past Kflgest-Actxjm-Tcgdwc Hx Immunizations Up To Date Tetanus Booster (TDap): Unknown Seasonal Allergies Seasonal Allergies: No Past Medical History Surgeries: Yes (RIGHT ARM REPAIR--CUT ARM ON CHICKEN WIRE/GLASS) Orthopedic Respiratory: Yes Asthma Cardiac: No Neurological: Yes (h/o seizures-- stress induced petite mal seizures)) Seizure Disorder Reproductive Disorders: No Sexually Transmitted Disease: No HIV/AIDS: No Genitourinary: Yes (atrophic right kidney) Gastrointestinal: No Musculoskeletal: Yes Degenerate Disk Disease, Chronic Back Pain Endocrine: No Cancer: No Psychosocial: No Integumentary: No Blood Disorders: No Adverse Reaction/Blood Tranf: No Family Medical History No Pertinent Family Hx Physical Exam Vital Signs Vital Signs - First Documented 08/07/21 13:15 Temp 36.8 Pulse 64 Resp 18 B/P (MAP) 153/110 (124) Pulse Ox 100 Capillary Refill : Height, Weight, BMI Height: 6'0" Weight: 210lbs. 6.0oz. 95.988884ct; 28.00 BMI Method:Estimated Progress/Results/Core Measures Suspected Sepsis SIRS Temperature: Pulse: Respiratory Rate: Laboratory Tests 08/07/21 14:45: White Blood Count 6.1 Blood Pressure / Mean: Laboratory Tests 08/07/21 14:45: Creatinine 0.87, Platelet Count 202, Total Bilirubin 0.4 Results/Orders Lab Results Laboratory Tests Test 08/07/21 14:45 08/07/21 15:30 Range/Units White Blood Count 6.1 4.3-11.0 10^3/uL Red Blood Count 4.69 4.30-5.52 10^6/uL Hemoglobin 14.0 13.3-17.7 g/dL Hematocrit 41 40-54 % Mean Corpuscular Volume 88 80-99 fL Mean Corpuscular Hemoglobin 30 25-34 pg Mean Corpuscular Hemoglobin Concent 34 32-36 g/dL Red Cell Distribution Width 12.6 10.0-14.5 % Platelet Count 202 130-400 10^3/uL Mean Platelet Volume 8.7 L 9.0-12.2 fL Immature Granulocyte % (Auto) 0 % Neutrophils (%) (Auto) 42 42-75 % Lymphocytes (%) (Auto) 49 H 12-44 % Monocytes (%) (Auto) 9 0-12 % Eosinophils (%) (Auto) 0 0-10 % Basophils (%) (Auto) 0 0-10 % Neutrophils # (Auto) 2.6 1.8-7.8 10^3/uL Lymphocytes # (Auto) 3.0 1.0-4.0 10^3/uL Monocytes # (Auto) 0.6 0.0-1.0 10^3/uL Eosinophils # (Auto) 0.0 0.0-0.3 10^3/uL Basophils # (Auto) 0.0 0.0-0.1 10^3/uL Immature Granulocyte # (Auto) 0.0 0.0-0.1 10^3/uL Sodium Level 141 135-145 MMOL/L Potassium Level 4.5 3.6-5.0 MMOL/L Chloride Level 108 H 98-107 MMOL/L Carbon Dioxide Level 26 21-32 MMOL/L Anion Gap 7 5-14 MMOL/L Blood Urea Nitrogen 15 7-18 MG/DL Creatinine 0.87 0.60-1.30 MG/DL Estimat Glomerular Filtration Rate 98 BUN/Creatinine Ratio 17 Glucose Level 88 70-105 MG/DL Calcium Level 9.4 8.5-10.1 MG/DL Corrected Calcium 9.4 8.5-10.1 MG/DL Total Bilirubin 0.4 0.1-1.0 MG/DL Aspartate Amino Transf (AST/SGOT) 19 5-34 U/L Alanine Aminotransferase (ALT/SGPT) 31 0-55 U/L Alkaline Phosphatase 65 40-136 U/L C-Reactive Protein High Sensitivity 0.49 0.00-0.50 MG/DL Total Protein 6.5 6.4-8.2 GM/DL Albumin 4.0 3.2-4.5 GM/DL My Orders Orders - ALEXANDRE STEEN [employer] Chlamydia Trachomatis Urine (08/07/21 12:36) Neis Magan Dna Urine Test (08/07/21 12:36) Ua Culture If Indicated (08/07/21 12:36) Us Scrotum (Testicle) [id number] (08/07/21 13:28) Ed Iv/Invasive Line Start (08/07/21 14:29) Cbc With Automated Diff (08/07/21 14:29) Comprehensive Metabolic Panel (08/07/21 14:29) Ct Abdomen/Pelvis W (08/07/21 14:29) Hs C Reactive Protein (08/07/21 14:30) Iohexol Injection (Omnipaque 350 Mg/Ml 1 (08/07/21 14:45) Received Contrast (Hold Metformin- Contr (08/07/21 14:45) Sodium Chloride Flush (Catheter Flush Sy (08/07/21 14:45) Ns (Ivpb) (Sodium Chloride 0.9% Ivpb Bag (08/07/21 14:45) Ketorolac Injection (Toradol Injection) (08/07/21 15:30) Medications Given in ED Current Medications Medications Dose Ordered Sig/Stuart Route Start Time Stop Time Status Last Admin Dose Admin Iohexol 100 ml ONCE ONCE IV 08/07/21 14:45 08/07/21 14:46 DC 08/07/21 15:06 100 ML Ketorolac Tromethamine 30 mg ONCE ONCE IVP 08/07/21 15:30 08/07/21 15:31 DC 08/07/21 15:28 30 MG Sodium Chloride 10 ml NEEDED PRN IV 08/07/21 14:45 08/07/21 15:07 10 ML Sodium Chloride 100 ml ONCE ONCE IV 08/07/21 14:45 08/07/21 14:46 DC 08/07/21 15:07 80 ML Vital Signs/I&O 08/07/21 13:15 Temp 36.8 Pulse 64 Resp 18 B/P (MAP) 153/110 (124) Pulse Ox 100 Capillary Refill : Departure Impression Primary Impression: STRAIN OF MUSC/FASC/TEND AT THIGH LEVEL, RIGHT THIGH, INIT Disposition: 01 HOME, SELF-CARE Condition: Stable Departure-Patient Inst. Decision time for Depature: 15:31 Referrals: [facility] (PCP) Primary Care Physician MIRTHA AGUERO (Family) Primary Care Physician Patient Instructions: Groin Strain (DC) Add. Discharge Instructions: Plan: 1. Rest. Ice area 20 minutes at a time 4-6x per day. 2. May use coco wrap to wrap area for support and stability. 3. May take Tylenol or Ibuprofen as needed for pain per package. 4. Return for any new, concerning, or worsening symptoms. ALEXANDRE STEEN [employer] Aug 07, 2021 12:50
--- NOTE | 2021-08-07 14:24 | Diagnostic Imaging Report ---
PROCEDURE: US Scrotum. TECHNIQUE: Multiple real-time grayscale images were obtained over the scrotum in various projections bilaterally. INDICATION: Periumbilical pain. Scrotal pain. Exam interpreted in correlation with abdominal pelvic CT 08/11/2020. Testicles appear normal with normal color Doppler blood flow. The epididymides appeared normal. There was no evidence for torsion or orchitis or epididymitis. There is no hernia. Small simple bilateral hydroceles are present. Sonographic surveillance left periumbilical was obscured by shadowing bowel gas with no detectable pathological finding. Impression: Small simple hydroceles. Scrotal Doppler ultrasound was otherwise normal. Shadowing bowel gas limits evaluation of the periumbilical abdominal wall and the tissues posterior to the wall. No pathological finding could be identified. If warranted further workup with CT may provide additional utility. There is no suspicious finding apparent at this exam. Dictated by: Dictated on workstation # [id number]
[2021-08-07] MEDS ORDERED: HOLD METFORMIN - RECEIVED CONTRAST 20 ML VIAL IV SCH (14:45)
[2021-08-07] MEDS ORDERED: IOHEXOL 350 MG/ML 100 ML (OMNIPAQUE 350) VIAL IV ONE (14:45)
[2021-08-07] MEDS ORDERED: CATHETER FLUSH 10 ML SYR IV PRN (14:45)
[2021-08-07] MEDS ORDERED: NS 100 ML (IVPB) BAG IV ONE (14:45)
[2021-08-07 14:52] LABS: BASOPHILS % (AUTO) 0 % (0-10); EOSINOPHILS % (AUTO) 0 % (0-10); HEMATOCRIT 41 % (40-54); LYMPHOCYTES % (AUTO) 49 % (12-44); MEAN CORPUSCULAR HEMOGLOBIN 30 pg (25-34); MEAN CORPUSCULAR HGB CONC 34 g/dL (32-36); MEAN CORPUSCULAR VOLUME 88 fL (80-99); MEAN PLATELET VOLUME 8.7 fL (9.0-12.2); MONOCYTES # (AUTO) 0.6 10^3/uL (0.0-1.0); MONOCYTES % (AUTO) 9 % (0-12); NEUTROPHILS # (AUTO) 2.6 10^3/uL (1.8-7.8); NEUTROPHILS % (AUTO) 42 % (42-75); PLATELET COUNT 202 10^3/uL (130-400); WHITE BLOOD COUNT 6.1 10^3/uL (4.3-11.0)
[2021-08-07 15:01] LABS: POTASSIUM 4.5 MMOL/L (3.6-5.0)
[2021-08-07 15:02] LABS: CALCIUM 9.4 MG/DL (8.5-10.1)
[2021-08-07 15:04] LABS: TOTAL PROTEIN 6.5 GM/DL (6.4-8.2)
[2021-08-07 15:05] LABS: BILIRUBIN,TOTAL 0.4 MG/DL (0.1-1.0)
[2021-08-07 15:08] LABS: CREATININE SERUM 0.87 MG/DL (0.60-1.30)
--- NOTE | 2021-08-07 15:19 | Diagnostic Imaging Report ---
PROCEDURE: CT abdomen and pelvis with contrast. TECHNIQUE: Multiple contiguous axial images were obtained through the abdomen and pelvis after administration of intravenous contrast. Auto Exposure Controls were utilized during the CT exam to meet ALARA standards for radiation dose reduction. All CT scans use one or more of the following dose optimizing techniques: Automated exposure control, MA and/or KvP adjustment based on patient size and exam type or iterative reconstruction. INDICATION: Left groin pain. COMPARISON: Exam is compared with CT 08/11/2020. FINDINGS: The lung bases are clear. Liver, bile ducts, and contracted gallbladder are normal. The unobstructed left kidney showed some compensatory hypertrophy but otherwise unremarkable. The right kidney is unobstructed but severely atrophic on a chronic basis. The urinary bladder is unremarkable. The prostate and seminal vesicles are unremarkable. No abdominal wall defect. No hernia. No bowel, biliary, or urinary tract obstruction. No ascites, abscess, hematoma, or acute fluid collection. No aneurysm, adenopathy, or mass. No inflammatory process. The osseous structures and hips appeared unremarkable. The patient has chronic L5 spondylolysis defects bilaterally with slight grade 1 anterolisthesis of L5 on S1. This is stable. IMPRESSION: No obstructive features, inflammatory processes, or acute abnormalities. No findings to explain the presenting complaint of left groin pain. Chronic atrophic unobstructed right kidney with compensatory hypertrophy of the otherwise normal and unobstructed left kidney. Chronic L5 spondylolysis defects with stable grade 1 L5 on S1 anterolisthesis. No acute bony abnormality. Dictated by: Dictated on workstation # [id number]
[2021-08-07] MEDS ORDERED: KETOROLAC 30 MG/ML VIAL IVP ONE (15:30)
[2021-08-07 15:42] LABS: BILIRUBIN,URINE NEGATIVE (NEGATIVE); CLARITY,URINE CLEAR; COLOR,URINE YELLOW; GLUCOSE, URINE (UA) NEGATIVE (NEGATIVE); KETONES,URINE NEGATIVE (NEGATIVE); LEUKOCYTE ESTERASE ,URINE NEGATIVE (NEGATIVE); NITRITE,URINE NEGATIVE (NEGATIVE); PH,URINE 7.5 (5-9); PROTEIN,URINE NEGATIVE (NEGATIVE)
[2021-08-07 15:58] LABS: BACTERIA,URINE NEGATIVE /HPF
[2021-08-07 16:03] VITALS: BP 146/95
== END 2021-08-07 16:03 | disposition home or self-care (01) ==
LOC: EDUNIT# 12:23 → ER 12:25
DX: S76.911A Strain of unspecified muscles, fascia and tendons at thigh level, right thigh, initial encounter (principal); J45.909 Unspecified asthma, uncomplicated; G89.29 Other chronic pain; M54.9 Dorsalgia, unspecified; Z79.891 Long term (current) use of opiate analgesic; X50.0XXA Overexertion from strenuous movement or load, initial encounter
CPT/HCPCS: 36415; 74177; 76870; 80053; 81000; 85025; 86141; 96374

== ENCOUNTER 2021-10-08 22:05 | Emergency (ER) | payer SELFPAY ==
[~2021-10-08] VITALS: Ht 190.5 cm; Wt 100.2 kg
--- NOTE | 2021-10-08 23:04 | ED Cough/URI ---
General Chief Complaint: COVID19 Suspect/Confirmed Stated Complaint: SORE THROAT,WEAKNESS,CONGESTION, POSSIBLE EXPOSURE Nursing Triage Note: Pt ambulatory into ER with complaint of Covid Exposure, Cough, Congestion. Pt states that he was exposed this past week at work, and now with the cough and congestion he wants to make sure he doesn't have it since he has 6 kids. Source: patient Exam Limitations: no limitations History of Present Illness Date Seen by Provider: Oct 08, 2021 Time Seen by Provider: 22:45 Initial Comments Patient is a 41-year-old male who presents to the emergency department today with a chief complaint of cough, upper respiratory congestion, some body aches. He states he has little back pain "in the area of my kidneys". He denies dysuria, urgency or frequency. No nausea, vomiting or diarrhea. He denies fevers or chills. He has had copious amounts of rhinorrhea and congestion and a sore throat. States that his and 2 of his children are immunocompromised, so he thought he needed to be tested for Covid. He is vaccinated, got his vaccinations 2 or 3 months ago. He is a smoker. Complains of a little wheezing and shortness of breath when he lays down at night. Has not taken any Tylenol or ibuprofen or any zibt-bkq-sdnhqez medications for cough and congestion. All other review of systems reviewed and negative except as stated. Timing/Duration: other (2 to 3 days) Severity/Quality: mild Prior Episodes/Possible Cause: illness exposure Modifying Factors: Improves With Coughing Associated Symptoms: muscle aches, nasal congestion, nasal drainage, sore throat Allergies and Home Medications Allergies Coded Allergies: NKANo Known Allergies (Unverified Allergy, Mild, 12/09/15) No Known Drug Allergies (Unverified , 12/22/09) Patient Home Medication List Home Medication List Reviewed: Yes Acetaminophen/Diphenhydramine (Percogesic 325-12.5 mg Tablet) 1 Each Tablet, 1 EACH PO Q4H PRN for PAIN-MODERATE (5-7) Prescribed by: CELESTE BOWLES on 08/11/20 1154 Amoxicillin (Amoxicillin) 500 Mg Capsule, 500 MG PO TID Prescribed by: CELESTE BOWLES on 03/10/17 1811 Amoxicillin (Amoxicillin) 500 Mg Capsule, 500 MG PO TID Prescribed by: CHRISTINA OLIVAREZ on 11/09/17 1701 Benzonatate (Tessalon Perles) 100 Mg Capsule, 100 MG PO Q6H Prescribed by: CHRISTINA OLIVAREZ on 11/09/17 170 Cyclobenzaprine HCl (Cyclobenzaprine HCl) 10 Mg Tablet, 10 MG PO Q8H Prescribed by: KATIE MCCAIN on 08/21/16 223 Hydrocodone/Acetaminophen (Hydrocodone/Acetaminophen 5 MG/325 MG TAB) 1 Each Tablet, 1 EACH PO Q4H PRN for PAIN-SEVERE Prescribed by: CELESTE BOWLES on 03/10/17 181 Hydrocodone/Acetaminophen (Hydrocodone-Acetamin 7.5-325) 1 Each Tablet, 1 EACH PO Q6H Prescribed by: VANDA MARTINEZ on 04/26/21 1223 Naproxen (Naproxen) 500 Mg Tablet, 500 MG PO BID Prescribed by: KATIE MCCAIN on 08/21/16 223 Naproxen (Naprosyn) 500 Mg Tablet, 500 MG PO BID PRN for PAIN-MODERATE (5-7) Prescribed by: CELESTE BOWLES on 08/11/20 1154 Ondansetron (Ondansetron Odt) 4 Mg Tab.rapdis, 4 MG PO Q6H PRN for NAUSEA/VOMITING Prescribed by: CHRISTINA OLIVAREZ on 11/09/17 170 Tramadol HCl (Ultram) 50 Mg Tablet, 50 MG PO Q6H PRN for PAIN-MODERATE TO SEVERE Prescribed by: CELESTE BOWLES on 08/19/17 191 Review of Systems Review of Systems Constitutional: see HPI EENTM: nose congestion, throat pain Respiratory: cough Cardiovascular: no symptoms reported Gastrointestinal: no symptoms reported Genitourinary: no symptoms reported Musculoskeletal: muscle pain (Body aches) Skin: no symptoms reported Psychiatric/Neurological: No Symptoms Reported All Other Systems Reviewed Negative Unless Noted: Yes Past Cdewswu-Fmlaco-Ujofpe Hx Patient Social History Tobacco Use?: Yes Tobacco type used: Cigarettes Smoking Status: Current Everyday Smoker Use of E-Cig and/or Vaping dev: No Substance use?: No Alcohol Use?: Yes Alcohol type: Beer, Hard Liquor Alcohol Frequency: Several times a month Pt feels they are or have been: No Immunizations Up To Date Tetanus Booster (TDap): Unknown Influenza Vaccine Up-to-Date: No; Not Current First/Initial COVID19 Vaccinat: JUNE 2021 Second COVID19 Vaccination Filippo: MERLENE Third COVID19 Vaccination Date: MERLENE Seasonal Allergies Seasonal Allergies: No Past Medical History Surgeries: Yes (RIGHT ARM REPAIR--CUT ARM ON CHICKEN WIRE/GLASS) Orthopedic Respiratory: Yes Asthma Cardiac: No Neurological: Yes (h/o seizures-- stress induced petite mal seizures)) Seizure Disorder Reproductive Disorders: No Sexually Transmitted Disease: No HIV/AIDS: No Genitourinary: Yes (atrophic right kidney) Gastrointestinal: No Musculoskeletal: Yes Degenerate Disk Disease, Chronic Back Pain Endocrine: No Cancer: No Psychosocial: No Integumentary: No Blood Disorders: No Adverse Reaction/Blood Tranf: No Family Medical History No Pertinent Family Hx Physical Exam Vital Signs - First Documented 10/08/21 22:44 Temp 36.6 Pulse 97 Resp 18 B/P (MAP) 157/98 (117) Pulse Ox 98 O2 Delivery Room Air Capillary Refill : Less Than 3 Seconds Height: 6'0" Weight: 210lbs. 6.0oz. [id number]; 27.00 BMI Method:Estimated General Appearance: WD/WN, no apparent distress HEENT: PERRL/EOMI, normal ENT inspection, TMs normal, pharynx normal Neck: non-tender, full range of motion, supple Respiratory: lungs clear, normal breath sounds, no respiratory distress, no accessory muscle use Cardiovascular: regular rate, rhythm Gastrointestinal: soft, tenderness (Mild bilateral lower quadrant tenderness without rebound or involuntary guarding) Extremities: normal range of motion, non-tender, normal inspection, no pedal edema Neurologic/Psychiatric: alert, normal mood/affect, oriented x 3 Skin: normal color, warm/dry Progress/Results/Core Measures Suspected Sepsis SIRS Temperature: Pulse: 97 Respiratory Rate: 18 Blood Pressure 157 /98 Mean: 117 Results/Orders Lab Results Laboratory Tests Test 10/08/21 22:30 Range/Units Influenza Type A (RT-PCR) Not Detected Not Detecte Influenza Type B (RT-PCR) Not Detected Not Detecte SARS-CoV-2 RNA (RT-PCR) Detected H Not Detecte Vital Signs/I&O 10/08/21 22:44 Temp 36.6 Pulse 97 Resp 18 B/P (MAP) 157/98 (117) Pulse Ox 98 O2 Delivery Room Air Capillary Refill : Less Than 3 Seconds Blood Pressure Mean: 117 Progress Note : Time: 23:28 Progress Note Patient is Covid positive tonight. Vital signs are stable. No clinical or objective findings to warrant further evaluation from the emergency department. Oxygen saturations are 99% on room air. Normal blood pressure, normal pulse. Patient is instructed to quarantine from the onset of symptoms which was Saturday the . He verbalized understanding. He is given good return precautions. All questions are sought and answered. Patient is stable for discharge. Departure Impression Primary Impression: COVID-19 Disposition: 01 HOME, SELF-CARE Condition: Stable Departure-Patient Inst. Decision time for Depature: 23:29 Referrals: [facility] (PCP) Primary Care Physician MIRTHA AGUERO (Family) Primary Care Physician Patient Instructions: COVID-19 ED Add. Discharge Instructions: Please drink plenty of fluids to stay well-hydrated. You need to drink water, Gatorade or Powerade or other electrolyte replacement drinks. Qzeg-qvh-bvowfln ibuprofen, 3 tablets which is 600 mg every 6-8 hours with food as needed for body aches and pain. You can also use wmcx-qcb-zfwvgaa Flonase, a nasal steroid as needed for nasal congestion and as directed on the bottle. You will need to quarantine from the to the for Covid. Return to the emergency room for any worsening symptoms especially shortness of breath, lightheadedness or dizziness, passing out spells or any other concerning symptoms. VANDA MARTINEZ MD Oct 08, 2021 23:03
[2021-10-08 23:37] VITALS: BP 143/78
== END 2021-10-08 23:37 | disposition home or self-care (01) ==
LOC: EDUNIT# 22:05 → ER 22:07
DX: U07.1 COVID-19 (principal); G89.29 Other chronic pain; M54.9 Dorsalgia, unspecified; F17.210 Nicotine dependence, cigarettes, uncomplicated; Z79.891 Long term (current) use of opiate analgesic
CPT/HCPCS: 87636; 99283

== ENCOUNTER → 2022-03-14 | Outpatient (CLI) | payer SELFPAY ==
[~2022-03-14] MED LIST changes: +CYCL10TA25 PO
--- NOTE | 2022-03-14 18:55 | Diagnostic Imaging Report ---
PROCEDURE: MRI lumbar spine. TECHNIQUE: Multiplanar, multisequence MRI of the lumbar spine was performed without contrast. INDICATION: Chronic low back pain with left leg pain and thigh pain EXAMINATION: Lumbar spine MRI without contrast 03/14/2022 COMPARISON: 06/18/2017 FINDINGS: There is grade 1 anterolisthesis at L5-S1 with bilateral pars defects noted. There is minimal grade 1 retrolisthesis at L3-L4 and at L1-L2. Vertebral body heights appear maintained. Tip of the conus unremarkable in appearance and location. L1-L2: There is intervertebral disc space narrowing, disc desiccation with mild broad-based bulging disc material. There is bilateral facet and ligamentum flavum hypertrophy. There is no central stenosis. There is moderate bilateral neuroforaminal narrowing. L2-L3: There is bilateral facet and ligamentum flavum hypertrophy. Minimal fluid in the right facet is noted consistent with degenerative disease. There is no significant bulging disc material. No central stenosis. There is mild to moderate bilateral neuroforaminal narrowing. L3-L4: There is disc desiccation with a mild broad-based bulging disc. There is an annular tear present. There is bilateral facet and ligamentum flavum hypertrophy. There is no central narrowing. There is mild to moderate bilateral neuroforaminal narrowing. L4-L5: There is disc desiccation with a central disc protrusion. There is bilateral facet and ligamentum flavum hypertrophy. There is no central stenosis. There is moderate bilateral neuroforaminal narrowing. L5-S1: There is intervertebral disc space narrowing, disc desiccation and a right paracentral broad-based bulging disc with right paracentral annular tear also seen. There is bilateral facet hypertrophy. No central narrowing. There is moderate bilateral neuroforaminal narrowing, right worse than left. Visualized intra-abdominal structures demonstrate cystic changes in the visualized left kidney. Right kidney appears markedly atrophied, likely congenital. IMPRESSION: 1. Multilevel diffuse degenerative disease as described above with bilateral pars defects and secondary grade 1 anterolisthesis at the L5-S1 level. Dictated by: Dictated on workstation # [id number]
== END ==
LOC: RAD 14:00
PROVIDERS: ATTEND Physician Assistant
DX: M43.17 Spondylolisthesis, lumbosacral region (principal); M48.061 Spinal stenosis, lumbar region without neurogenic claudication; M51.26 Other intervertebral disc displacement, lumbar region; M89.38 Hypertrophy of bone, other site; M51.36 Other intervertebral disc degeneration, lumbar region; N26.1 Atrophy of kidney (terminal)
CPT/HCPCS: 72148

== ENCOUNTER 2022-07-08 08:39 | Emergency (ER) | payer SELFPAY ==
[~2022-07-08] VITALS: Ht 193 cm; Wt 100.2 kg
--- NOTE | 2022-07-08 09:21 | ED Back Pain ---
General Chief Complaint: Back Problems Stated Complaint: BACK PAIN Nursing Triage Note: PT STATES CHRONIC DISK ISSUES, WAS PLAYING SOFTBALL YESTERDAY AND SLIPPED RUNNING INTO SECOND BASE. WHEN HE WAS LOADING HIS CAR AFTER THE GAME HAD SHARP PAIN IN LOWER BACK. TOOK A MUSCLE RELAXER AND HYDRO WHEN HE GOT HOME, LAST PAIN MED 0430. Source of Information: Patient Exam Limitations: No Limitations History of Present Illness Date Seen by Provider: Jul 08, 2022 Time Seen by Provider: 09:21 Initial Comments Patient is a 42-year-old male who presents to the emergency department today with a chief complaint of low back pain onset last evening after playing baseball. Patient states that he "hit a double" and as he was running in his right foot touched the bag, his left foot slipped back and he twisted his back. He states he felt a "pull" but was able to complete the run. As he was taking his things to the car he said he had a sudden onset of more intense pain in his lower back more on the left side that "brought me to my knees". He states he was able to stand up slowly. He tells me he has a history of "bad disks". He denies any loss of bowel or bladder function, was able to urinate on his own. No numbness, tingling or weakness down his legs below the level of his knees. He is able to walk slowly and bear weight. He states he took a Flexeril, naproxen and hydrocodone last night. He woke up still in significant pain. He put ice packs on his back. Continues to have no complaints of saddle anesthesia or inability to move his legs or numbness. All other review of systems reviewed and negative except as stated. Timing/Duration: Other (16-18 hours) Severity: Severe Pain/Injury Location: Back Radiation: Buttocks Method of Injury: Other (playing sports) Modifying Factors: Worse With Movement Associated Symptoms: No numbness in legs/feet, No tingling in legs/feet, No sensory/motor loss; lower back pain; No loss of bladder control, No loss of bowel control Allergies and Home Medications Allergies Coded Allergies: NKANo Known Allergies (Unverified Allergy, Mild, 12/09/15) No Known Drug Allergies (Unverified , 12/22/09) Patient Home Medication List Home Medication List Reviewed: Yes Acetaminophen/Diphenhydramine (Percogesic 325-12.5 mg Tablet) 1 Each Tablet, 1 EACH PO Q4H PRN for PAIN-MODERATE (5-7) Prescribed by: CELESTE BOWLES on 08/11/20 115 Amoxicillin (Amoxicillin) 500 Mg Capsule, 500 MG PO TID Prescribed by: CELESTE BOWLES on 03/10/171810 Amoxicillin (Amoxicillin) 500 Mg Capsule, 500 MG PO TID Prescribed by: CHRISTINA OLIVAREZ on 11/09/17 170 Benzonatate (Tessalon Perles) 100 Mg Capsule, 100 MG PO Q6H Prescribed by: CHRISTINA OLIVAREZ on 11/09/171700 Cyclobenzaprine HCl (Cyclobenzaprine HCl) 10 Mg Tablet, 10 MG PO Q8H Prescribed by: KATIE MCCAIN on 08/21/162232 Hydrocodone/Acetaminophen (Hydrocodone/Acetaminophen 5 MG/325 MG TAB) 1 Each Tablet, 1 EACH PO Q4H PRN for PAIN-SEVERE Prescribed by: CELESTE BOWLES on 03/10/171810 Hydrocodone/Acetaminophen (Hydrocodone-Acetamin 7.5-325) 1 Each Tablet, 1 EACH PO Q6H Prescribed by: VANDA MARTINEZ on 04/26/21 1223 Naproxen (Naproxen) 500 Mg Tablet, 500 MG PO BID Prescribed by: KATIE MCCAIN on 08/21/162232 Naproxen (Naprosyn) 500 Mg Tablet, 500 MG PO BID PRN for PAIN-MODERATE (5-7) Prescribed by: CELESTE BOWLES on 08/11/20 115 Ondansetron (Ondansetron Odt) 4 Mg Tab.rapdis, 4 MG PO Q6H PRN for NAUSEA/VOMITING Prescribed by: CHRISTINA OLIVAREZ on 11/09/171700 Tramadol HCl (Ultram) 50 Mg Tablet, 50 MG PO Q6H PRN for PAIN-MODERATE TO SEVERE Prescribed by: CELESTE BOWLES on 08/19/171912 Review of Systems Constitutional: see HPI Respiratory: no symptoms reported Cardiovascular: no symptoms reported Gastrointestinal: no symptoms reported Genitourinary: no symptoms reported Musculoskeletal: back pain Skin: no symptoms reported Psychiatric/Neurological: Other ("tingling" in upper posterior thighs) Past Kwqeofa-Auqebu-Mwklny Hx Patient Social History Tobacco Use?: Yes Tobacco type used: Cigarettes Smoking Status: Current Everyday Smoker Substance use?: No Alcohol Use?: Yes Alcohol type: Beer Alcohol Frequency: Once in a while Immunizations Up To Date Tetanus Booster (TDap): Unknown First/Initial COVID19 Vaccinat: JUNE 2021 Second COVID19 Vaccination Filippo: MERLENE Third COVID19 Vaccination Date: MERLENE Seasonal Allergies Seasonal Allergies: No Past Medical History Surgery/Hospitalization HX: CHRONIC BACK/DISK PAIN Surgeries: Yes (RIGHT ARM REPAIR--CUT ARM ON CHICKEN WIRE/GLASS) Orthopedic Respiratory: Yes Asthma Cardiac: No Neurological: Yes (h/o seizures-- stress induced petite mal seizures)) Seizure Disorder Reproductive Disorders: No Sexually Transmitted Disease: No HIV/AIDS: No Genitourinary: Yes (atrophic right kidney) Gastrointestinal: No Musculoskeletal: Yes Degenerate Disk Disease, Chronic Back Pain Endocrine: No Cancer: No Psychosocial: No Integumentary: No Blood Disorders: No Adverse Reaction/Blood Tranf: No Family Medical History No Pertinent Family Hx Physical Exam Vital Signs Vital Signs - First Documented 07/08/22 08:43 Temp 35.1 Pulse 77 Resp 20 B/P (MAP) 140/98 (112) Pulse Ox 96 O2 Delivery Room Air Capillary Refill : Less Than 3 Seconds Height, Weight, BMI Height: 6'0" Weight: 210lbs. 6.0oz. 95.439335hx; 26.00 BMI Method:Estimated General Appearance: No Apparent Distress, WD/WN, Other (standing straight up at the bedsidde on my entry into the room.) HEENT: PERRL/EOMI Neck: Full Range of Motion, Normal Inspection Cardiovascular: Regular Rate, Rhythm, Normal Peripheral Pulses Respiratory: Lungs Clear, Normal Breath Sounds, No Accessory Muscle Use, No Respiratory Distress Gastrointestinal: Normal Bowel Sounds, Non Tender, Soft Back: Normal Inspection, No CVA Tenderness, Vertebral Tenderness (from L1-L5 in the midline. Tenderness to palpation more at the left posterior superior iliac crest. no swelling or rash. Neg SLR bilaterally; normal dorsiflexion of the great toes bilaterally; 5/5 strength all muscle groups b LE. no saddle anesthesia; ) Neurologic/Psychiatric: Alert, Oriented x3, No Motor/Sensory Deficits, Normal Mood/Affect Skin: Normal Color, Warm/Dry Progress/Results/Core Measures Results/Orders My Orders Orders - VANDA MARTINEZ MD Ketorolac Injection (Toradol Injection) (07/08/22 09:45) Orphenadrine Inj (Ed Only) (Norflex Inje (07/08/22 09:45) Lidocaine 4% Patch (Salonpas 4% Patch) (07/09/22 09:00) Vital Signs/I&O 07/08/22 08:43 Temp 35.1 Pulse 77 Resp 20 B/P (MAP) 140/98 (112) Pulse Ox 96 O2 Delivery Room Air Blood Pressure Mean: 112 Progress Progress Note #1: Time: 09:41 Progress Note Patient was very upset when I told him that we would do medication management. He asked "so I am not getting an MRI". I advised him that he had no direct trauma to his spine and no findings on neurologic examination to suggest any loss of function. That MRIs are reserved for people who would meet clinical criteria to have referral to a neurosurgeon for acute management. He had an MRI he tells me about a year and a half ago. He states that he does not follow-up routinely with [facility]. I advised him he needs to be on some routine pain medications as well as other supportive therapies such as heat and ice packs and lidocaine patches until these muscle spasms cool down. If he develops acute neurologic dysfunction then he would meet criteria for an acute MRI and also we do not have MRI capabilities here at the weekend. Patient tells me "so I just spent $2000 for nothing?". I advised him that he spends his $2000 on finding out that he did not have a neurosurgical emergency and that he was safe for discharge to home and that we would be happy to treat his pain and help to make him feel better. He is quite frustrated with this. He is agreeable however to medications. Progress Note #2: Time: 09:45 Progress Note Patient now Irate. He is yelling at staff and angry he is not getting an MRI. He is choosing to leave against medical advice and without treatment. Am bulatory out of the department under his own power. Departure Impression Primary Impression: Acute exacerbation of chronic low back pain Additional Impression: Sacro-iliac pain Disposition: 07 AGAINST MEDICAL ADVICE Condition: Against Medical Advice Departure-Patient Inst. Decision time for Depature: 09:43 Referrals: [facility] [place] ([place]/Family) Primary Care Physician Patient Instructions: Sacroiliac Joint Pain ED Add. Discharge Instructions: Drink plenty of fluids to stay well-hydrated. Continue naproxen/Aleve 500 mg twice daily as needed for pain. Always take this medication with food. Do not take extra ibuprofen while you are taking this medication. Continue your Flexeril up to 3 times daily for the next 3 to 5 days. Use your hydrocodone every 6 hours as needed for more intense pain. This medication can cause constipation. Do not drive and take this medication. It is a good idea to take stool softeners twice daily while taking this pain medication. You can use fsvf-azm-ndfifwv lidocaine patches to the area over your left hip and low back for pain management as well. Alternate heat and ice patches as well. Follow-up with your primary care provider for further pain management. Return to the emergency department for any loss of bowel or bladder control, numbness, weakness or loss of function of your legs or any other emergent, concerning symptoms VANDA MARTINEZ MD Jul 08, 2022 09:21
[2022-07-08 09:45] VITALS: BP 140/98
[2022-07-08] MEDS ORDERED: KETOROLAC 60 MG/2 ML VIAL IM ONE (09:45)
[2022-07-08] MEDS ORDERED: ORPHENADRINE 60 MG/2 ML (NORFLEX) AMP (ED ONLY) IM ONE (09:45)
[2022-07-09] MEDS ORDERED: LIDOCAINE 4% (SALONPAS) PATCH TOP SCH (09:00)
== END 2022-07-08 09:45 | disposition left against medical advice (07) ==
LOC: EDUNIT# 08:39 → ER 08:40
DX: M53.3 Sacrococcygeal disorders, not elsewhere classified (principal); M54.50 Low back pain, unspecified; G89.29 Other chronic pain; F17.210 Nicotine dependence, cigarettes, uncomplicated; X58.XXXA Exposure to other specified factors, initial encounter; Y93.67 Activity, basketball
CPT/HCPCS: 99281

== ENCOUNTER 2023-09-27 20:18 | Emergency (ER) | payer SELFPAY ==
[~2023-09-27] VITALS: Ht 193 cm; Wt 104.0 kg
[2023-09-27 20:31] VITALS: BP 161/107
--- NOTE | 2023-09-27 20:38 | ED EENT ---
History of Present Illness General Chief Complaint: Oral/Throat Problems Stated Complaint: TROUBLE SWALLOWING, CHEST AND LT SIDE TIGHTNESS Source: patient Exam Limitations: no limitations (HASMUKH BARBOUR) History of Present Illness Date Seen by Provider: Sep 27, 2023 Time Seen by Provider: 20:38 Initial Comments Patient is a 43-year-old male who presents to ED with left-sided neck pain difficulty swallowing. States he has been having trouble swallowing and pain with swallowing over the past month. He states he has been evaluated at [facility] and had a COVID swab, influenza swab, check for strep as well as chlamydia and gonorrhea and mono all came back negative. Patient states he has been on 2 rounds of amoxicillin without much improvement. Last dose 3 weeks ago. This evening started having pain from the left side neck down to the left chest Does have some dental pain as well. Reports mild headache. Denies of any specific chest pain or shortness of breath, abdominal pain, nausea, vomiting, diarrhea or injury. Denies history of similar symptoms in the past. No known cardiac history history of asthma COPD, hypertension, diabetes. (HASMUKH BARBOUR) Allergies and Home Medications Allergies Coded Allergies: NKANo Known Allergies (Unverified Allergy, Mild, 12/09/15) No Known Drug Allergies (Unverified , 12/22/09) Patient Home Medication List Home Medication List Reviewed: Yes (HASMUKH BARBOUR) Acetaminophen/Diphenhydramine (Percogesic 325-12.5 mg Tablet) 1 Each Tablet, 1 EACH PO Q4H PRN for PAIN-MODERATE (5-7) Prescribed by: CELESTE BOWLES on 08/11/20 1154 Amoxicillin (Amoxicillin) 500 Mg Capsule, 500 MG PO TID Prescribed by: CELESTE BOWLES on 03/10/17 1811 Amoxicillin (Amoxicillin) 500 Mg Capsule, 500 MG PO TID Prescribed by: CHRISTINA OLIVAREZ on 11/09/17 170 Amoxicillin/Potassium Clav (Amox Tr-K Clv 875-125 mg Tab) 875 Mg-125 Mg Tablet, 1 EACH PO BID Prescribed by: EMERITA MISTRY on 09/27/23 2301 Benzonatate (Tessalon Perles) 100 Mg Capsule, 100 MG PO Q6H Prescribed by: CHRISTINA OLIVAREZ on 11/09/17 1701 Cyclobenzaprine HCl (Cyclobenzaprine HCl) 10 Mg Tablet, 10 MG PO Q8H Prescribed by: KATIE MCCAIN on 08/21/16 2233 Hydrocodone/Acetaminophen (Hydrocodone/Acetaminophen 5 MG/325 MG TAB) 1 Each Tablet, 1 EACH PO Q4H PRN for PAIN-SEVERE Prescribed by: CELESTE BOWLES on 03/10/17 1811 Hydrocodone/Acetaminophen (Hydrocodone-Acetamin 7.5-325) 1 Each Tablet, 1 EACH PO Q6H Prescribed by: VANDA MARTINEZ on 04/26/21 1223 Hydrocodone/Acetaminophen (Hydrocodone-Acetamin 5-325 mg) 5 Mg-325 Mg Tablet, 1 TAB PO Q4H PRN for PAIN-MODERATE (5-7) Prescribed by: EMERITA MISTRY on 09/27/23 2303 Naproxen (Naproxen) 500 Mg Tablet, 500 MG PO BID Prescribed by: KATIE MCCAIN on 08/21/16 2233 Naproxen (Naprosyn) 500 Mg Tablet, 500 MG PO BID PRN for PAIN-MODERATE (5-7) Prescribed by: CELESTE BOWLES on 08/11/20 1154 Ondansetron (Ondansetron Odt) 4 Mg Tab.rapdis, 4 MG PO Q6H PRN for NAUSEA/VOMITING Prescribed by: CHRISTINA OLIVAREZ on 11/09/17 1701 Tramadol HCl (Ultram) 50 Mg Tablet, 50 MG PO Q6H PRN for PAIN-MODERATE TO SEVERE Prescribed by: CELESTE BOWLES on 08/19/17 191 Review of Systems Review of Systems Constitutional: No chills, No diaphoresis Eyes: Denies Drainage, Denies Decreased Acuity, Denies Pain, Denies Photophobia Ears: Denies Dizziness, Denies Pain Nose: denies clots, denies congestion Mouth: denies clots, denies loose teeth Throat: pain, swelling, painful swallowing Respiratory: No cough, No dyspnea on exertion Cardiovascular: No chest pain Gastrointestinal: No abdominal pain, No diarrhea, No nausea, No vomiting Musculoskeletal: No back pain, No joint pain Skin: No change in color, No change in hair/nails (HASMUKH BARBOUR) All Other Systems Reviewed Negative Unless Noted: Yes (HASMUKH BARBOUR) Past Kzaiaao-Tgkfoy-Qxwscy Hx Immunizations Up To Date Tetanus Booster (TDap): Unknown First/Initial COVID19 Vaccinat: JUNE 2021 Second COVID19 Vaccination Filippo: MERLENE Third COVID19 Vaccination Date: MERLENE (HASMUKH BARBOUR) Seasonal Allergies Seasonal Allergies: No (HASMUKH BARBOUR) Past Medical History Surgery/Hospitalization HX: CHRONIC BACK/DISK PAIN Surgeries: Yes (RIGHT ARM REPAIR--CUT ARM ON CHICKEN WIRE/GLASS) Orthopedic Respiratory: Yes Asthma Cardiac: No Neurological: Yes (h/o seizures-- stress induced petite mal seizures)) Seizure Disorder Reproductive Disorders: No Sexually Transmitted Disease: No HIV/AIDS: No Genitourinary: Yes (atrophic right kidney) Gastrointestinal: No Musculoskeletal: Yes Degenerate Disk Disease, Chronic Back Pain Endocrine: No Cancer: No Psychosocial: No Integumentary: No Blood Disorders: No Adverse Reaction/Blood Tranf: No (HASMUKH BARBOUR) Family Medical History No Pertinent Family Hx (HASMUKH BARBOUR) Physical Exam Height, Weight, BMI Height: 6'0" Weight: 210lbs. 6.0oz. [id number]; 26.00 BMI Method:Estimated General Appearance: WD/WN, no apparent distress Eyes: bilateral eye normal inspection, bilateral eye PERRL, bilateral eye EOMI Ears: bilateral ear auricle normal, bilateral ear canal normal, bilateral ear TM normal Nose: normal inspection Mouth/Throat: other (No uvula deviation. Oropharynx patent without erythema swelling or exudate. Tolerating secretions. No thyromegaly. Left-sided neck tenderness. No bruit stridor.) Cardiovascular: regular rate, rhythm, no edema, no gallop Respiratory: chest non-tender, lungs clear, normal breath sounds, no respiratory distress Gastrointestinal: normal bowel sounds, non tender, soft, no organomegaly Neurologic/Psychiatric: box lidder II-XII nml as tested, no motor/sensory deficits, alert, normal mood/affect, oriented x 3 Skin: normal color, warm/dry (HASMUKH BARBOUR) Progress/Results/Core Measures Comment Sinus rhythm, 84 bpm, QRS duration 93 MS, QTc 392 MS. (HASMUKH BARBOUR) Departure Communication (PCP) Reviewed previous ER visits, H&P, lab testing. Differential diagnosis tonsillar abscess, retropharyngeal abscess, neck mass, metastatic disease, ACS, carotid dissection. On exam he has tenderness to the left side neck. No thyroid tenderness or evidence of enlargement of the thyroid. Concern that this pain radiated down to the left-sided chest. No shortness of breath or cough. Difficulty swallowing and painful. On exam he has no evidence of bruits or stridor. There is no swelling or redness of the neck suggesting Benny angina. CBC, CMP, troponin, EKG chest x-ray and CT soft tissue neck was ordered. CBC, CMP was grossly unremarkable. He had negative COVID, influenza, strep, chlamydia and gonorrhea outpatient. Recently finished amoxicillin 3 weeks ago. EKG without evidence of ST elevation or depression. Chest x-ray negative for free air, pneumothorax, pneumonia. Normal troponin. Clinically does not appear cardiac. CT scan of the neck shows superior to have lymphadenitis with small fluid collections in the adenoids bilateral left greater than the right. No other rim-enhancing fluid collection seems. No evidence of retropharyngeal abscess. Due to the adenoid fluid collections consulted ENT Dr. Carter. He felt that the CT scan was wrong regarding these results. He states at this time suggest following up in their clinic for further evaluation. No emergent intervention at this time. I will start patient on Augmentin at this time. He is tolerating secretions. Patient started developing abdominal pain. Pain is generalized. Did perform abdominal x-ray which did show some borderline constipation without evidence of obstruction. Patient did receive a dose of Toradol and hydrocodone with improvement of pain. Did give 10 mg of dexamethasone for the swelling. If any worsening symptoms such as difficulties breathing, not tolerating secretions patient needs to return back to ED. (HASMUKH BARBOUR) Impression Primary Impression: Suppurative lymphadenitis Disposition: 01 HOME, SELF-CARE Condition: Stable Departure-Patient Inst. Decision time for Depature: 22:58 (HASMUKH BARBOUR) Referrals: ALEJO CARTER MD [facility] (PCP/Family) Primary Care Physician Patient Instructions: Lymphadenitis (DC) Scripts Hydrocodone/Acetaminophen (Hydrocodone-Acetamin 5-325 mg) 5 Mg-325 Mg Tablet 1 TAB PO Q4H PRN for PAIN-MODERATE (5-7), #6 TAB Prov: HASMUKH BARBOUR 09/27/23 Amoxicillin/Potassium Clav (Amox Tr-K Clv 875-125 mg Tab) 875 Mg-125 Mg Tablet 1 EACH PO BID for 7 Days, #14 TAB Prov: HASMUKH BARBOUR 09/27/23 ATTENDING PHYSICIAN NOTE: I WAS PHYSICALLY PRESENT ER PHYSICIAN, BUT I WAS NOT INVOLVED IN ANY DECISION MAKING OR ANY CARE OF THIS PATIENT, AND I AM NOT COLLABORATING PHYSICIAN. (KATIE MCCAIN DO) HASMUKH BARBOUR Sep 27, 2023 20:38 KATIE MCCAIN DO Oct 10, 2023 06:05
[2023-09-27 20:53] LABS: BASOPHILS % (AUTO) 0 % (0-10); EOSINOPHILS % (AUTO) 0 % (0-10); HEMATOCRIT 46 % (40-54); HEMOGLOBIN 15.5 g/dL (13.3-17.7); LYMPHOCYTES # (AUTO) 4.2 10^3/uL (1.0-4.0); LYMPHOCYTES % (AUTO) 40 % (12-44); MEAN CORPUSCULAR HEMOGLOBIN 29 pg (25-34); MEAN CORPUSCULAR HGB CONC 34 g/dL (32-36); MEAN CORPUSCULAR VOLUME 86 fL (80-99); MEAN PLATELET VOLUME 8.5 fL (9.0-12.2); MONOCYTES # (AUTO) 1.1 10^3/uL (0.0-1.0); MONOCYTES % (AUTO) 11 % (0-12); NEUTROPHILS # (AUTO) 5.2 10^3/uL (1.8-7.8); NEUTROPHILS % (AUTO) 49 % (42-75); PLATELET COUNT 279 10^3/uL (130-400); WHITE BLOOD COUNT 10.6 10^3/uL (4.3-11.0)
--- NOTE | 2023-09-27 21:13 | Diagnostic Imaging Report ---
PATIENT HISTORY: Chest pain. TECHNIQUE: Single frontal view of the chest. COMPARISON: 08/19/2017. FINDINGS: The lung volumes are normal. No focal consolidation is seen. No large pleural effusion or pneumothorax is seen. The cardiomediastinal silhouette is normal in size and contour. No acute osseous abnormality is seen. IMPRESSION: No acute pulmonary abnormality seen. Dictated by: Dictated on workstation # [id number]
[2023-09-27 21:17] LABS: ALANINE AMINOTRANSFERASE 56 U/L (0-55); ALBUMIN 4.4 GM/DL (3.2-4.5); ALKALINE PHOSPHATASE 89 U/L (40-136); BILIRUBIN,TOTAL 0.4 MG/DL (0.1-1.0); BUN/CREATININE RATIO 19; CALCIUM 9.8 MG/DL (8.5-10.1); CARBON DIOXIDE 24 MMOL/L (21-32); CHLORIDE 103 MMOL/L (98-107); CREATININE SERUM 0.93 MG/DL (0.60-1.30); GFR ESTIMATED 106; GLUCOSE 104 MG/DL (70-105); MAGNESIUM 2.1 MG/DL (1.6-2.4); POTASSIUM 3.9 MMOL/L (3.6-5.0); SODIUM 137 MMOL/L (135-145); TOTAL PROTEIN 7.6 GM/DL (6.4-8.2)
[2023-09-27] MEDS ORDERED: IOHEXOL 350 MG/ML 100 ML (OMNIPAQUE 350) VIAL IV ONE (21:30)
[2023-09-27] MEDS ORDERED: NS 100 ML (IVPB) BAG IV ONE (21:30)
[2023-09-27] MEDS ORDERED: fentaNYL INJECTION 100 MCG/2 ML VIAL IVP STA (22:31)
--- NOTE | 2023-09-27 22:32 | Diagnostic Imaging Report ---
PROCEDURE: CT neck soft tissue with contrast. TECHNIQUE: Multiple contiguous axial images were obtained through the neck after the administration of contrast. Auto Exposure Controls were utilized during the CT exam to meet ALARA standards for radiation dose reduction. INDICATION: Left neck pain and difficulty swallowing. COMPARISON: Cervical spine CT from 06/03/2016. FINDINGS: There are enlarged suppurative adenoids, bilaterally, with fluid collections in the adenoids, the largest on the left measuring 3.5 x 1.2 cm on axial imaging. This measures about 2.9 cm craniocaudal. There may be mild mucosal thickening and tonsil prominence, but no other rim-enhancing fluid collections are seen in the deep soft tissues of the neck. There is no retropharyngeal fluid collection. There are several mildly prominent cervical lymph nodes which are likely reactive. No soft tissue gas is seen. The thyroid, submandibular glands and parotid glands appear normal. There are mucous retention cysts in the right maxillary sinus. No airway compromise is appreciated. IMPRESSION: Suppurative lymphadenitis with small fluid collections in the adenoids, bilaterally, left greater than right. No other rim-enhancing fluid collection is seen. Dictated by: Dictated on workstation # [id number]
[2023-09-27] MEDS ORDERED: KETOROLAC INJ 30 MG/ML VIAL IVP ONE (23:00)
[2023-09-27] MEDS ORDERED: AMOX1TAB12 PO (23:01)
[2023-09-27] MEDS ORDERED: ACHD5005 PO (23:02)
[2023-09-27] MEDS ORDERED: AMOXICILLIN/Clavulanate 875 MG TABLET PO STA (23:09)
[2023-09-27] MEDS ORDERED: HYDROcodone/ACETAMINOPHEN 5 MG/325 MG TABLET PO ONE (23:15)
[2023-09-27] MEDS ORDERED: dexAMETHasone ORAL SOLUTION 1 MG/ML 5 ML UDC PO STA (23:31)
--- NOTE | 2023-09-28 07:58 | Diagnostic Imaging Report ---
INDICATION: Generalized abdominal pain. COMPARISON: None. DISCUSSION: Two views of the abdomen were obtained. Contrast is noted within the left kidney, left ureter, and bladder. The right kidney is not identified. Lung bases are well-aerated. No osseous abnormality or pathologic calcification. Gas and stool within the colon. Borderline constipation. No abnormal small bowel loops. No free air. IMPRESSION: 1. Nonvisualization of the right kidney. 2. Borderline constipation. Dictated by: Dictated on workstation # [id number]
== END 2023-09-27 23:54 | disposition home or self-care (01) ==
LOC: EDUNIT# 20:18 → ER 20:22
DX: L04.0 Acute lymphadenitis of face, head and neck (principal)
CPT/HCPCS: 36415; 70491; 71045; 74018; 80053; 83735; 84484; 85025; 86141; 93005; 96374